=== PATIENT | male | born 1990 | race Caucasian/White ===

== ENCOUNTER 2017-03-02 04:49 | Emergency (ER) | payer SELFPAY ==
[~2017-03-02 04:49] MED LIST: HYDR7.5S PO; SUBO8MIS SL
[2017-03-02 04:50] VITALS: BP 139/84; PULSE 106; RESP 16; TEMP 97.8; O2SAT 98
[2017-03-02] MEDS ORDERED: CEPH500C PO (05:10)
[2017-03-02] MEDS ORDERED: BACT800T5 PO (05:10)
--- NOTE | 2017-03-02 05:14 | PD ---
HPI Chief Complaint: Skin Problem Time Seen by Provider: 05:10 Travel History International Travel<30 days: No Contact w/Intl Traveler<30days: No Traveled to known affect area: No History of Present Illness HPI 26-year-old white male presents emergency Department with complaints of infection is lower pubic region over the past week. He states that the area is opened and started draining. He has had a history of skin infections in the past. He states that he has had cellulitis as well. Pain is moderate. Worse with palpation. He denies any fever chills. No nausea vomiting. No alleviating factors. PFSH Past Medical History Narrative Medical Mandible fracture, sUBSTANCE ABUSE, MRSA Cancer: No Cardiovascular Problems: No Diabetes: No Endocrine: No Genitourinary: No Hepatitis: No Hiatal Hernia: No Immune Disorder: No Musculoskeletal: No Neurologic: No Psychiatric: No Reproductive: No Respiratory: No Thyroid Disease: No Tetanus Vaccination: < 5 Years Past Surgical History Narrative Surgical Mandible fracture with arch bars Abdominal Surgery: No AICD: No Cardiac Surgery: No Ear Surgery: No Endocrine Surgery: No Eye Surgery: No Genitourinary Surgery: No Gynecologic Surgery: No Joint Replacement: No Oral Surgery: Yes (ARCH BARS AND WIRES) Pacemaker: No Thoracic Surgery: No Other Surgery: Yes Social History Alcohol Use: No Tobacco Use: Yes (5 cigarettes a day) Substance Use: No Allergies-Medications (Allergen,Severity, Reaction): Coded Allergies: No Known Allergies (Unverified , 03/02/17) Reported Meds & Prescriptions Reported Meds & Active Scripts Active Hydrocodone/Acetaminophen 7.5 mg/325 mg/15 ml 7.5 mg/325 mg/15 ml Angie 15 Ml PO Q4H PRN Reported Suboxone 8 mg/2 mg 8 mg/2 mg Subl 1 Strip SL DAILY PRN SUBLINGUAL STRIP. Review of Systems Except as stated in HPI: all other systems reviewed are Neg Physical Exam Narrative GENERAL: This is a well-nourished, well-developed patient, in no apparent distress. SKIN: Patient has a 1.5 x 1.5 cm open draining superficial pubic abscess. No pointing. No fluctuance. Tender to touch. HEAD: Atraumatic. Normocephalic. EYES: PERRL, EOMI, no discharge or injection. No scleral icterus. EARS: Clear NOSE: Nasal turbinates appear normal. THROAT: Mucosa pink and moist. Airway patent. NECK: Trachea midline. supple, moves head freely. LUNGS: Clear to auscultation. CV: Regular in rhythm. ABDOMEN: Soft nontender. EXT: No clubbing cyanosis or edema. Data Data Last Documented VS Vital Signs Date Time Temp Pulse Resp B/P Pulse Ox O2 Delivery O2 Flow Rate FiO2 03/02/17 04:50 97.8 106 16 139/84 98 Room Air Orders Sulfamet-Trimeth Ds 800-160 Mg (Bactrim (03/02/17 05:15) Cephalexin (Keflex) (03/02/17 05:15) MDM Medical Decision Making Medical Screen Exam Complete: Yes Emergency Medical Condition: Yes Medical Record Reviewed: Yes Differential Diagnosis MDM: High Differential diagnoses: Abscess, folliculitis, cellulitis, lymphangitis, abrasion, contact dermatitis Narrative Course Patient has a open draining superficial abscess in the pubic region. Patient's given Bactrim DS and Keflex 500 by mouth. Diagnosis Primary Impression: Abscess Patient Instructions: General Instructions Additional Instructions: Rest. Elevation. keep clean and dry. Warm compresses Daily wound care with soap, water and Neosporin. Three Advil every 6 hours. Cephalexin and Bactrim DS Follow-up with a primary care doctor in one week. Return to the ER for any problems. Med/Other Pt SpecificInfo: Prescription(s) given, Wound Care Scripts Cephalexin 500 Mg [id number] Mg PO Q6H #28 CAP Prov:Yesy Soriano MD 03/02/17 Sulfamethoxazole-Trimethoprim (Bactrim DS)800-160 Mg Tab1 Tab PO BID #20 TAB Prov:Yesy Soriano MD 03/02/17 Disposition: 01 DISCHARGE HOME Condition: Stable Remi Wilson Mar 02, 2017 05:14
[2017-03-02] MEDS ORDERED: SULFAMETHOXAZOLE-TRIMETHOPRIM DS 800-160 MG TAB PO ONE (05:15)
[2017-03-02] MEDS ORDERED: CEPHALEXIN MONOHYDRATE 500 MG CAP PO ONE (05:15)
[2017-03-02 05:26] VITALS: BP 119/74
== END 2017-03-02 05:48 | disposition home or self-care (01) ==
LOC: NEPD 04:49
DX: L02.211 Cutaneous abscess of abdominal wall (principal); F17.210 Nicotine dependence, cigarettes, uncomplicated; Z79.899 Other long term (current) drug therapy
CPT/HCPCS: 99284

== ENCOUNTER 2017-08-28 01:33 | Emergency (ER) | payer SELFPAY ==
[~2017-08-28] VITALS: Ht 182.9 cm; Wt 102.8 kg
[~2017-08-28 01:33] MED LIST changes: +BACT800T5 PO; +CEPH500C PO
[2017-08-28 01:40] VITALS: BP 132/85; PULSE 114; RESP 12; TEMP 98.5; O2SAT 97
[2017-08-28] MEDS ORDERED: SULFAMETHOXAZOLE-TRIMETHOPRIM DS 800-160 MG TAB PO ONE (03:00)
[2017-08-28] MEDS ORDERED: CLIN150C14 PO (03:00)
[2017-08-28] MEDS ORDERED: CLINDAMYCIN 150 MG CAP PO ONE (03:00)
[2017-08-28] MEDS ORDERED: IBUPROFEN 800 MG TAB PO ONE (03:00)
[2017-08-28] MEDS ORDERED: BACT800T5 PO (03:00)
--- NOTE | 2017-08-28 03:01 | PD ---
HPI Chief Complaint: Skin Problem Time Seen by Provider: 02:57 Travel History International Travel<30 days: No Contact w/Intl Traveler<30days: No Traveled to known affect area: No History of Present Illness HPI 26-year-old male presents to the emergency department for complaint of several days of midsternal tenderness redness and increased warmth. Patient states she has had recurrent abscesses and cellulitis to this area. Patient denies fever chills nausea vomiting. Patient states that pain is moderate to severe. Patient states that he also notes another area of redness to his abdominal wall. Patient denies prior MRSA infection. PFS Past Medical History Narrative Medical nursing notes reviewed Cancer: No Cardiovascular Problems: No Diabetes: No Endocrine: No Genitourinary: No Hepatitis: No Hiatal Hernia: No Immune Disorder: No Musculoskeletal: No Neurologic: No Psychiatric: No Reproductive: No Respiratory: No Thyroid Disease: No Influenza Vaccination: No Past Surgical History Abdominal Surgery: No AICD: No Cardiac Surgery: No Ear Surgery: No Endocrine Surgery: No Eye Surgery: No Genitourinary Surgery: No Gynecologic Surgery: No Joint Replacement: No Oral Surgery: Yes (ARCH BARS AND WIRES) Pacemaker: No Thoracic Surgery: No Other Surgery: Yes Social History Alcohol Use: No Tobacco Use: Yes (5 cigarettes a day) Substance Use: No Allergies-Medications (Allergen,Severity, Reaction): Coded Allergies: No Known Allergies (Unverified Adverse Reaction, Unknown, 08/28/17) Reported Meds & Prescriptions Reported Meds & Active Scripts Active Clindamycin (Clindamycin HCl) 150 Mg Cap 300 Mg PO Q6H 7 Days Bactrim DS (Sulfamethoxazole-Trimethoprim) 800-160 Mg Tab 1 Tab PO BID Review of Systems Except as stated in HPI: all other systems reviewed are Neg Physical Exam Narrative GENERAL: Well-developed well-nourished male in no acute distress no respiratory distress SKIN: Warm and dry. HEAD: Normocephalic. EYES: No scleral icterus. No injection or drainage. NECK: Supple, trachea midline. No JVD or lymphadenopathy. CARDIOVASCULAR: Regular rate and rhythm without murmurs, gallops, or rubs. Chest: Small area 1 cm x 1 cm area of erythema induration and mild striations no fluctuance no increased warmth no pointing no pustule no vesicle. RESPIRATORY: Breath sounds equal bilaterally. No accessory muscle use. GASTROINTESTINAL: Abdomen soft, non-tender, nondistended. Abdominal wall pink ringed rash. MUSCULOSKELETAL: No cyanosis, or edema. BACK: Nontender without obvious deformity. No CVA tenderness. Data Data Last Documented VS Vital Signs Date Time Temp Pulse Resp B/P (MAP) Pulse Ox O2 Delivery O2 Flow Rate FiO2 08/28/17 03:35 90 20 124/76 (92) 98 08/28/17 01:40 98.5 Orders Orders Sulfamet-Trimeth Ds 800-160 Mg (Bactrim (08/28/17 03:00) Clindamycin (Cleocin) (08/28/17 03:00) Ibuprofen (Motrin) (08/28/17 03:00) Ed Discharge Order (08/28/17 02:58) [facility] Medical Decision Making Medical Screen Exam Complete: Yes Emergency Medical Condition: Yes Medical Record Reviewed: Yes Differential Diagnosis Cellulitis abscess folliculitis ringworm Narrative Course Patient has small area of induration without fluctuance for mild cellulitis early abscess of the chest wall need to be started on oral antibiotics and is encouraged to use topical antifungal for ringworm to the abdominal wall. Patient is encouraged to recheck in 24-48 hours as maybe able to I&D site. First dose of antibiotic administered in the emergency department. Patient is otherwise stable for outpatient management. 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 Return to the emergency department for any concerns or change in condition May use [id number] acetaminophen for pain or fever 100.4F or greater May use ibuprofen/Advil/Motrin 800 mg as often as every 8 hours as needed for pain associated inflammation or fever 100.4F or greater Med/Other Pt SpecificInfo: Prescription(s) given Scripts Clindamycin (Clindamycin) 150 Mg Cap 300 MG PO Q6H for Infection for 7 Days, #56 CAP 0 Refills Prov: Donya Brenner MD 08/28/17 Sulfamethoxazole-Trimethoprim (Bactrim DS) 800-160 Mg Tab 1 TAB PO BID for Infection, #20 TAB 0 Refills Prov: Donya Brenner MD 08/28/17 Disposition: 01 DISCHARGE HOME Condition: Stable Donya Brenner MD Aug 28, 2017 03:01
[2017-08-28 03:35] VITALS: BP 124/76
== END 2017-08-28 03:36 | disposition home or self-care (01) ==
LOC: PHED 01:33
DX: L02.213 Cutaneous abscess of chest wall (principal); L03.313 Cellulitis of chest wall; B35.9 Dermatophytosis, unspecified; Z72.0 Tobacco use
CPT/HCPCS: 99284

== ENCOUNTER 2018-07-03 23:40 | Inpatient (IN) ==
--- NOTE | 2018-07-04 01:28 | ED ---
HPI General Chief complaint: Skin/Abscess/Foreign Body Stated complaint: Poss spider bite per PT Time Seen by Provider: 07/04/18 00:52 History of Present Illness HPI narrative: Patient is a 27-year-old male who says for 4 days his legs been swelling the right knee he had a spider bite and now it is gone for days with no antibiotics no treatment in his entire lower leg tib-fib area is swollen erythematous and tender he has no pain with passive extension of his toes but it is very swollen compared to the right. Pain is pressure-like he says he feels tingling as well in his leg and sometimes he feels his toes are numb. He has not seen a doctor for this he is not on antibiotics he is not taking any [id number] meds either Related Data Home Medications Medication Instructions Recorded Confirmed No Known Home Medications 07/04/18 07/04/18 Allergies Allergy/AdvReac Type Severity Reaction Status Date / Time No Known Allergies Allergy Verified 07/04/18 00:02 [facility] Medical History Medical History Patient denies medical problems (Acute) Surgical History Surgical History History of mandibular surgery (Acute) Social History Social History Substance History: No History of Abuse Second Hand Smoke Exposure: Yes Smoking Status: Light tobacco smoker Tobacco Type: Cigars How Often Do You Have a Drink Containing Alcohol: Never Recent Travel in [facility] within the Last 8 Weeks: No Recent Out of Country Travel within the Last 8 Weeks: No Immunization History Tetanus Immunization: >5 Years Exam Narrative Exam Narrative: GENERAL: right leg swelling erythema red tender painful anterior lower knee entire tib fib swelling SKIN: Warm and dry. HEAD: Atraumatic. Normocephalic. EYES: Pupils equal and round. No scleral icterus. No injection or drainage. ENT: No nasal bleeding or discharge. Mucous membranes pink and moist. NECK: Trachea midline. No JVD. CARDIOVASCULAR: Regular rate and rhythm. RESPIRATORY: No accessory muscle use. Clear to auscultation. Breath sounds equal bilaterally. GASTROINTESTINAL: Abdomen soft, non-tender, nondistended. Hepatic and splenic margins not palpable. MUSCULOSKELETAL: Extremities Right lower leg swelling rednesess and tender and increased circumference of right > left leg. NEUROLOGICAL: Awake and alert. No obvious cranial nerve deficits. Motor grossly within normal limits. Five out of 5 muscle strength in the arms and legs. Normal speech. PSYCHIATRIC: Appropriate mood and affect; insight and judgment normal. Course Initial Documented Vital Signs Temperature 99.5 F 07/03/18 23:58 Pulse Rate 118 H 07/03/18 23:58 Respiratory Rate 18 07/03/18 23:58 Blood Pressure 155/112 H 07/03/18 23:58 Pulse Oximetry 99 07/03/18 23:58 Last Documented Vital Signs Temperature 99.5 F 07/03/18 23:58 Pulse Rate 97 H 07/04/18 00:58 Respiratory Rate 18 07/04/18 00:58 Blood Pressure 138/78 07/04/18 00:58 Pulse Oximetry 100 07/04/18 00:58 Discharge Plan Physicians Team ED Provider: Ender Garcia Rxs /Orders / Referrals /Forms Prescriptions: No Action No Known Home Medications RF: 0 Status ED Status: With Doctor
[2018-07-04] MEDS ORDERED: Vancomycin Inj 1 GM/200 ML PIGGYBACK IV.SIG ONE (01:32)
[2018-07-04] MEDS ORDERED: Vancomycin Inj 1,000 MG in Sodium Chlor 0.9% Inj 250 ML IV.SIG ONE (02:00)
[2018-07-04 02:06] LABS: Baso # (Auto) 0.1 th/mm3 (0.0-0.2); Baso % (Auto) 0.4 % (0.0-2.0); Eos # (Auto) 0.1 th/mm3 (0.0-0.4); Eos % (Auto) 0.4 % (0.0-4.0); Hematocrit 42.8 % (39.0-51.0); Hemoglobin 14.3 gm/dL (13.0-17.0); Lymph # (Auto) 2.1 th/mm3 (1.0-4.8); Lymph % (Auto) 14.9 % (9.0-44.0); Mean Corpuscular HGB Conc 33.5 % (32.0-36.0); Mean Corpuscular Hemoglobin 28.9 pg (27.0-34.0); Mean Corpuscular Volume 86.3 fL (80.0-100.0); Mean Platelet Volume 9.1 fL (7.0-11.0); Mono # (Auto) 1.1 th/mm3 (0.0-0.9); Mono % (Auto) 8.1 % (0.0-8.0); Neut # (Auto) 10.7 th/mm3 (1.8-7.7); Neut % (Auto) 76.2 % (16.0-70.0); Platelet Count 169 th/mm3 (150-450); Red Blood Count 4.97 mil/mm3 (4.50-5.90); Red Cell Distribution Width 13.4 % (11.6-17.2)
[2018-07-04] MEDS ORDERED: Ketorolac Inj 30 MG/ML (IVP) Vial IV.PUSH ONE (02:09)
[2018-07-04 02:26] LABS: Alanine Aminotransferase 140 U/L (12-78); Albumin 3.1 g/dL (3.4-5.0); Anion Gap 4 meq/L (5-15); Aspartate Aminotransferase 51 U/L (15-37); Blood Urea Nitrogen 15 mg/dL (7-18); Calcium 7.9 mg/dL (8.5-10.1); Carbon Dioxide 30.9 meq/L (21.0-32.0); Chloride 103 meq/L (98-107); Glomerular Filtration Rate Greater Than 89 mL/min (>89); Glucose,Random 117 mg/dL (74-106); Potassium 3.7 meq/L (3.5-5.1); Sodium 138 meq/L (136-145)
[2018-07-04 02:28] LABS: Alkaline Phosphatase 72 U/L (45-117); Total Protein 6.8 g/dL (6.4-8.2)
--- NOTE | 2018-07-04 03:23 | US ---
EXAM DATE: 07/04/2018 3:00 AM EST AGE/SEX: 27 years / Male INDICATIONS: Right leg swelling. CLINICAL DATA: This is the patient's initial encounter. Patient reports that signs and symptoms have been present for 3 days and indicates a pain score of 5/10. MEDICAL/SURGICAL HISTORY: None. . Mandibular surgery. COMPARISON: No prior exams available for comparison. TECHNIQUE: Venous ultrasound of both lower extremities was performed from the inguinal ligament to t he proximal calf. Real-time, color Doppler and spectral tracing, compression and augmentation techni ques were used. FINDINGS: Echogenic noncompressible thrombus seen involving the peroneal vein. This is occlusive in nature. The remaining venous structures show normal venous waveforms and augmentation. CONCLUSION: 1. Small volume DVT. Electronically signed by: Homer Hidalgo MD 07/04/2018 3:21 AM EST
[2018-07-04] MEDS ORDERED: Acetaminophen 325 MG Tablet PO PRN (03:33)
[2018-07-04] MEDS ORDERED: Bisacodyl 10 MG Supp RECTAL PRN (03:33)
[2018-07-04] MEDS ORDERED: Naloxone Inj 0.4 MG/ML Vial IV.PUSH PRN (03:33)
[2018-07-04] MEDS ORDERED: Enoxaparin Inj 100 MG/ML Syringe SQ ONE (03:34)
[2018-07-04] MEDS ORDERED: Vancomycin Consult Pharmacy OTHER PRN (03:37)
[2018-07-04] MEDS ORDERED: Enoxaparin Inj 40 MG/0.4 ML Syringe SQ SCH (04:00)
[2018-07-04] MEDS: Sod Chloride 0.9% Inj 1,000 ML IV.CONT SCH ×2 (04:19→14:12)
[2018-07-04] MEDS ORDERED: Vancomycin Inj 1,000 MG in Sodium Chlor 0.9% Inj 250 ML IV.SIG SCH (04:30)
[2018-07-04] MEDS: Enoxaparin Inj 100 MG/ML Syringe SQ SCH ×2 (07:03→16:04)
[2018-07-04] MEDS: Senna/Docusate Sodium 8.6/50 MG Tablet PO SCH ×2 (10:23→20:34)
--- NOTE | 2018-07-04 10:40 | P.HP ---
History of Present Illness Primary Care Physician: No Primary Care Physician Chief Complaint: Right knee pain following spider bite History of Present Illness: 27-year-old man with no significant past medical history other than half a pack tobacco use presented to the ED for evaluation of painful and swollen right knee following a spider bite 4 days ago. Patient states, 4 days ago he was working on a car when he got bitten by a spider accident he noted 3 small puncture wound. 24 hours after noted significant swelling and redness followed by difficulty with ambulation. About 2 days ago patient started noticing tingling in his right lower extremity. He endorsed chills and subjective fevers. He states, the wound became slightly purulent which patient played with. While in the ED, a Doppler was positive for right lower extremity thrombus. He had no other issues. Review of Systems All other systems reviewed negative except as stated in HPI PMFSH - History History Provided By: Patient - Medical History Medical History: Medical History (Last Reviewed 07/04/18 @ 00:59 by Zion Cortez Jr, RN) Patient denies medical problems - Surgical History Surgical History: Surgical History (Last Updated 07/04/18 @ 00:59 by Zion Cortez Jr, RN) History of mandibular surgery - Family History Family History: Family History (Last Updated 07/04/18 @ 10:37 by Chuck Maldonado MD) Other Congestive heart failure (CHF) - Tobacco History Second Hand Smoke Exposure: Yes Tobacco Use In Past 30 Days: Yes Smoking Status: Light tobacco smoker Tobacco Type: Cigars - Alcohol History How Often Do You Have a Drink Containing Alcohol: Never - Substance Use History Substance History: No History of Abuse - Travel History Recent Travel in the [facility] Within the Last 8 Weeks: No Recent Travel Out of the Country Within the Last 8 Weeks: No - Immunization History Tetanus Immunization: >5 Years Medications and Allergies Active Medications: Active Medications Acetaminophen (Tylenol) 650 mg PO Q4H PRN PRN Reason: Temp > 100.4 Hydrocodone Bitart/Acetaminophen ([place] 5/325) 1 tab PO Q4H PRN PRN Reason: pain scale 5 to 10 Al Hydroxide/Mg Hydroxide (Milk Of Magnesia Liq) 30 ml PO Q12H PRN PRN Reason: Mild Constipation Bisacodyl (Dulcolax Supp) 10 mg RECTAL DAILY PRN PRN Reason: SEVERE CONSITIPATION Enoxaparin Sodium (Lovenox Inj) 100 mg SQ Q12H [facility] Stop: 07/04/18 23:00 Last Admin: 07/04/18 07:03 Dose: Not Given Sodium Chloride (Ns Inj) 1,000 mls @ 100 mls/hr IV.CONT .Q10H [facility] Last Admin: 07/04/18 04:19 Dose: 100 mls/hr Vancomycin HCl 1,750 mg/ (Sodium Chloride) 517.5 mls @ 250 mls/hr IV.SIG Q12H [facility] Piperacillin/Tazobactam/Dextrose (Zosyn 3.375 Gm Premix) 50 mls @ 100 mls/hr IV.SIG Q6H [facility] Lactobacillus Acidophilus (Lactinex) 1 tab PO BID [facility] Lactulose (Lactulose Liq) 30 ml PO DAILY PRN PRN Reason: SEVERE CONSITIPATION Miscellaneous Information ([facility] Ordered Lab Info) 0 each OTHER ONCE ONE Stop: 07/05/18 13:46 Morphine Sulfate (Morphine Inj) 2 mg IV.PUSH Q4H PRN PRN Reason: BREAKTHROUGH PAIN Naloxone HCl (Narcan Inj) 0.4 mg IV.PUSH UNSCH PRN PRN Reason: SEE LABEL COMMENTS Ondansetron HCl (Zofran Inj) 4 mg IV.PUSH Q6H PRN PRN Reason: NAUSEA OR VOMITING Pharmacy Profile Note (Vancomycin Consult Pharmacy) 1 each OTHER UNSCH PRN PRN Reason: Pharmacy to dose Rivaroxaban (Xarelto) 20 mg PO DAILY [facility] Senna/Docusate Sodium (Jenny-Colace) 1 tab PO BID [facility] Last Admin: 07/04/18 10:23 Dose: Not Given Sennosides (Senokot) 17.2 mg PO Q12H PRN PRN Reason: Moderate Constipation Sodium Chloride (Ns Flush) 2 ml IV.FLUSH BID [facility] Last Admin: 07/04/18 10:23 Dose: Not Given Sodium Chloride (Ns Flush) 2 ml IV.FLUSH PRN PRN PRN Reason: FLUSH AFTER USING IV ACCESS Allergies Allergy/AdvReac Type Severity Reaction Status Date / Time No Known Allergies Allergy Verified 07/04/18 00:02 Home Medications Medication Instructions Recorded Confirmed Type No Known Home Medications 07/04/18 07/04/18 History Exam Vital signs: Vital Signs 07/03/18 23:58 07/04/18 00:58 07/04/18 03:00 Temperature 99.5 F Pulse Rate 118 H 97 H Respiratory Rate 18 18 16 Blood Pressure 155/112 H 138/78 Pulse Oximetry 99 100 07/04/18 06:02 07/04/18 08:07 Temperature Pulse Rate 82 82 Respiratory Rate 18 16 Blood Pressure 116/63 130/73 Pulse Oximetry 98 96 Intake & Output 07/03/18 07/04/18 07/04/18 18:59 06:59 18:59 Intake Total 500 / 500 Balance 500 / 500 Weight 99.79 kg Intake: IV 500 / 500 Vancomycin Inj 1,000 MG In NS 500 / 500 Inj 250 ML @ 250 mls/hr IV.SIG DAILY@0430 [facility] Rx#:[id number] Narrative: GENERAL: NAD SKIN: right leg swelling erythema red tender painful anterior lower knee entire tib fib swelling HEAD: Atraumatic. Normocephalic. EYES: Pupils equal and round. No scleral icterus. No injection or drainage. ENT: No nasal bleeding or discharge. Mucous membranes pink and moist. NECK: Trachea midline. No JVD. CARDIOVASCULAR: Regular rate and rhythm. RESPIRATORY: No accessory muscle use. Clear to auscultation. Breath sounds equal bilaterally. GASTROINTESTINAL: Abdomen soft, non-tender, nondistended. Hepatic and splenic margins not palpable. MUSCULOSKELETAL: Right lower leg swelling redness and tender and increased circumference of right > left leg. NEUROLOGICAL: Awake and alert. No obvious cranial nerve deficits. Motor grossly within normal limits. Five out of 5 muscle strength in the arms and legs. Normal speech. PSYCHIATRIC: Appropriate mood and affect; insight and judgment normal. Results - Labs CBC & Chem 7: 07/05/18 08:13 07/05/18 08:13 Labs: Laboratory Results - last 24 hr 07/04/18 07/04/18 07/04/18 01:48 01:48 01:54 WBC 14.0 H RBC 4.97 Hgb 14.3 Hct 42.8 MCV 86.3 MCH 28.9 MCHC 33.5 RDW 13.4 Plt Count 169 MPV 9.1 Neut % (Auto) 76.2 H Lymph % (Auto) 14.9 [place] % (Auto) 8.1 H Eos % (Auto) 0.4 Baso % (Auto) 0.4 Neut # (Auto) 10.7 H Lymph # (Auto) 2.1 [place] # (Auto) 1.1 H Eos # (Auto) 0.1 Baso # (Auto) 0.1 WBC Differential . Differential Comment Auto diff final Sodium 138 Potassium 3.7 Chloride 103 Carbon Dioxide 30.9 Anion Gap 4 L BUN 15 Creatinine 0.97 Estimated GFR Greater than 89 Random Glucose 117 H Lactic Acid 1.6 Calcium 7.9 L Total Bilirubin 0.6 AST 51 H ALT 140 H Alkaline Phosphatase 72 Total Protein 6.8 Albumin 3.1 L - Imaging Impressions Venous Doppler Study 07/04/18 01:30 CONCLUSION: 1. Small volume DVT. Caprini VTE Risk Assessment Caprini VTE Risk Assessment: No/Low Risk (score <= 1) Caprini Risk Assessment Model: Point Value = 1 Point Value = 2 Point Value = 3 Point Value = 5 Age 41-60 Minor surgery BMI > 25 kg/m2 Swollen legs Varicose veins or History of unexplained or recurrent spontaneous Oral contraceptives or hormone replacement Sepsis (< 1 month) Serious lung disease, including pneumonia (< 1 month) Abnormal pulmonary function Acute myocardial infarction Congestive heart failure (< 1 month) History of inflammatory bowel disease Medical patient at bed rest Age 61-74 Arthroscopic surgery Major open surgery (> 45 min) Laparoscopic surgery (> 45 min) Malignancy Confined to bed (> 72 hours) Immobilizing plaster cast Central venous access Age >= 75 History of VTE Family history of VTE Factor V Leiden Prothrombin [id number] Lupus anticoagulant Anticardiolipin antibodies Elevated serum homocysteine Heparin-induced thrombocytopenia Other congenital or acquired thrombophilia Stroke (< 1 month) Elective arthroplasty Hip, pelvis, or leg fracture Acute spinal cord injury (< 1 month) Prophylaxis Regimen: Total Risk Factor Score Risk Level Prophylaxis Regimen 0-1 Low Early ambulation 2 Moderate Order ONE of the following: *Sequential Compression Device (SCD) *Heparin 5000 units SQ BID 3-4 Higher Order ONE of the following medications: *Heparin 5000 units SQ TID *Enoxaparin/Lovenox 40 mg SQ daily (WT < 150 kg, CrCl > 30 mL/min) *Enoxaparin/Lovenox 30 mg SQ daily (WT < 150 kg, CrCl > 10-29 mL/min) *Enoxaparin/Lovenox 30 mg SQ BID (WT < 150 kg, CrCl > 30 mL/min) AND/OR *Sequential Compression Device (SCD) 5 or more Highest Order ONE of the following medications: *Heparin 5000 units SQ TID (Preferred with Epidurals) *Enoxaparin/Lovenox 40 mg SQ daily (WT < 150 kg, CrCl > 30 mL/min) *Enoxaparin/Lovenox 30 mg SQ daily (WT < 150 kg, CrCl > 10-29 mL/min) *Enoxaparin/Lovenox 30 mg SQ BID (WT < 150 kg, CrCl > 30 mL/min) AND *Sequential Compression Device (SCD) Assessment and Plan - Plan 27-year-old man with Right lower extremity cellulitis Spider bite Currently on IV vancomycin, will add Zosyn and monitor cultures Pain management accordingly Leukocytosis From a bowel infectious process, monitor Right lower extremity DVT Doppler positive for right thrombus Currently on Lovenox subcu every 12 hours, will start Xarelto 20 mg daily on July 05, 2018 instead Tobacco abuse Counseling cessation provided Start nicotine patch Transaminitis Check hepatitis profile and treat accordingly DVT prophylaxis: Lovenox
[2018-07-04] MEDS: Piperacil/Tazo 3.375 GM Premix 50 ML IV.SIG SCH ×2 (14:02→18:31)
[2018-07-04] MEDS: Lactobacillus Acidophilus/L. Spores Tablet PO SCH ×2 (14:03→22:25)
[2018-07-04] MEDS: Vancomycin Inj 1,750 MG in Sodium Chlor 0.9% Inj 500 ML IV.SIG SCH (15:30)
[2018-07-04] MEDS: Morphine Inj 4 MG/ML Vial IV.PUSH PRN (16:03)
[2018-07-04 20:37] LABS: Hepatitis A IgM Antibody Nonreactive (Nonreactive)
[2018-07-04 20:38] LABS: Hepatitits B Surface Antigen Nonreactive (Nonreactive)
[2018-07-05] MEDS: Sod Chloride 0.9% Inj 1,000 ML IV.CONT SCH ×4 (00:16→21:27)
[2018-07-05] MEDS: Piperacil/Tazo 3.375 GM Premix 50 ML IV.SIG SCH ×4 (00:16→18:55)
[2018-07-05] MEDS: Morphine Inj 4 MG/ML Vial IV.PUSH PRN ×2 (00:17→04:06)
[2018-07-05] MEDS: Vancomycin Inj 1,750 MG in Sodium Chlor 0.9% Inj 500 ML IV.SIG SCH ×2 (03:22→16:21)
[2018-07-05] MEDS: Lactobacillus Acidophilus/L. Spores Tablet PO SCH ×2 (08:39→21:27)
[2018-07-05] MEDS: Senna/Docusate Sodium 8.6/50 MG Tablet PO SCH ×2 (08:40→21:27)
[2018-07-05 08:59] LABS: Baso % (Auto) 0.3 % (0.0-2.0); Eos # (Auto) 0.2 th/mm3 (0.0-0.4); Eos % (Auto) 1.6 % (0.0-4.0); Hematocrit 38.7 % (39.0-51.0); Hemoglobin 12.8 gm/dL (13.0-17.0); Lymph # (Auto) 1.8 th/mm3 (1.0-4.8); Lymph % (Auto) 15.2 % (9.0-44.0); Mean Corpuscular HGB Conc 33.2 % (32.0-36.0); Mean Corpuscular Hemoglobin 28.4 pg (27.0-34.0); Mean Corpuscular Volume 85.5 fL (80.0-100.0); Mean Platelet Volume 9.4 fL (7.0-11.0); Mono # (Auto) 1.1 th/mm3 (0.0-0.9); Mono % (Auto) 9.8 % (0.0-8.0); Neut # (Auto) 8.4 th/mm3 (1.8-7.7); Neut % (Auto) 73.1 % (16.0-70.0); Platelet Count 183 th/mm3 (150-450); Red Blood Count 4.53 mil/mm3 (4.50-5.90); Red Cell Distribution Width 13.5 % (11.6-17.2); White Blood Count 11.5 th/mm3 (4.0-11.0)
[2018-07-05] MEDS ORDERED: Rivaroxaban 20 MG Tablet PO SCH (09:00)
[2018-07-05 09:22] LABS: Calcium 8.1 mg/dL (8.5-10.1); Carbon Dioxide 27.3 meq/L (21.0-32.0); Potassium 3.2 meq/L (3.5-5.1)
--- NOTE | 2018-07-05 10:36 | P.PN ---
Subjective Interval history: Nursing reports that the patient looks ill. Erythema is spanning more proximally beyond the scope of the knee onto the thigh. Patient himself says he feels no better than yesterday. Thinks that the swelling in his legs just are notch better. He is suprised when I tell him that his blood work is showing hepatitis C. He denies IV drug use. When I point out what could be track mai on his feet, he says those are just abrasions from scratching from other spider bites. Patient denies being on any recent travel, denies any history of cancer in himself or his family. Does report lying around in bed for the past 2 days. Physical Exam Vital signs: Vital Signs 07/04/18 11:39 07/04/18 11:59 07/04/18 16:57 Temperature 98.5 F 98.5 F Pulse Rate 99 H 104 H Respiratory Rate 16 20 20 Blood Pressure 132/79 125/72 Pulse Oximetry 100 100 07/04/18 19:34 07/05/18 00:00 07/05/18 04:00 Temperature 100.0 F H 99.0 F 98.9 F Pulse Rate 110 H 106 H 111 H Respiratory Rate 20 18 19 Blood Pressure 113/70 115/59 L 139/78 Pulse Oximetry 96 96 100 07/05/18 07:17 07/05/18 10:13 Temperature 98.4 F Pulse Rate 95 H Respiratory Rate 18 16 Blood Pressure 142/82 H Pulse Oximetry 99 Intake & Output 07/04/18 07/05/18 07/05/18 18:59 06:59 18:59 Intake Total 1567.5 / 1567.5 1667.5 / 1667.5 Balance 1567.5 / 1567.5 1667.5 / 1667.5 Weight 90.718 kg Intake: IV 1567.5 / 1567.5 1667.5 / 1667.5 NS Inj 1,000 ML @ 100 mls/hr IV 1000 / 1000 1000 / 1000 .CONT .Q10H [facility] Rx#:[id number] Zosyn 3.375 GM Premix 50 ML @ 50 / 50 150 / 150 100 mls/hr IV.SIG Q6H [facility] Rx#: [id number] Vancomycin Inj 1,750 MG In NS 517.5 / 517.5 517.5 / 517.5 Inj 500 ML @ 250 mls/hr IV.SIG Q12H [facility] Rx#:[id number] Other: # Voids 2 Date of Last Bowel Movement 07/03/18 Weight On Admission 90.79 kg Narrative: Limited active flexion of right knee due to edema and pain Right lower extremity: Has some prepatellar prominent edema minimal fluctuance, erythema spans over entire knee and prepatellar region, goes towards the posterior as well as the proximal circumferential bauer and popliteal region with edema as well. Edema stops about mid shaft down at the level of the tibia , foot is normal in size Left lower extremity has some track mai looking lesions over his left dorsum of the foot Heart sounds regular rate and rhythm, no murmurs Clear lungs bilaterally, unlabored breathing Awake and alert, in distress secondary to pain Results - Labs CBC & Chem 7: 07/05/18 08:13 07/05/18 08:13 Laboratory Results - last 24 hr 07/04/18 07/05/18 07/05/18 17:09 08:13 08:13 WBC 11.5 H RBC 4.53 Hgb 12.8 L Hct 38.7 L MCV 85.5 MCH 28.4 MCHC 33.2 RDW 13.5 Plt Count 183 MPV 9.4 Neut % (Auto) 73.1 H Lymph % (Auto) 15.2 [place] % (Auto) 9.8 H Eos % (Auto) 1.6 Baso % (Auto) 0.3 Neut # (Auto) 8.4 H Lymph # (Auto) 1.8 [place] # (Auto) 1.1 H Eos # (Auto) 0.2 Baso # (Auto) 0.0 WBC Differential . Differential Comment Auto diff final Sodium 138 Potassium 3.2 L Chloride 105 Carbon Dioxide 27.3 Anion Gap 6 BUN 6 L Creatinine 1.08 Estimated GFR 81 L Random Glucose 92 Calcium 8.1 L Hepatitis A IgM Ab Nonreactive Hep Bs Antigen Nonreactive Hep B Core IgM Ab Nonreactive Hep C IgG Ab Reactive H Assessment and Plan - Plan 27-year-old man admitted sepsis and right lower extremity DVT Sepsis secondary to cellulitis Right lower extremity cellulitis Spider bite? vs inoculation from possible dirty needle Currently on IV vancomycin and Zosyn, blood cultures pending Pain management accordingly Rule out abscess with ultrasound, may need CT scan of right lower extremity Lactic acidosis minimally elevated 1.6, IV fluids telemetry Leukocytosis improving, continue treatment as above Right lower extremity DVT Doppler positive for right thrombus, will switch patient back from Xarelto to Lovenox in light of possible surgical evaluation based upon pending above imaging studies Tobacco abuse Counseling cessation provided nicotine patch Transaminitis Hep C + lovenox
--- NOTE | 2018-07-05 11:17 | US ---
EXAM DATE: 07/05/2018 11:07 AM EST AGE/SEX: 27 years / Male INDICATIONS: Spider bite right anterior patella. CLINICAL DATA: This is the patient's subsequent encounter. Patient reports that signs and symptoms h ave been present for 4 - 6 days and indicates a pain score of 8/10. MEDICAL/SURGICAL HISTORY: . Spider bite right anterior patella. None. COMPARISON: [facility] [place] VENOUS DOPPLER LEG RIGHT, 07/04/2018. . FINDINGS: There is a complex subcutaneous hypoechoic area likely related to fluid seen in the anterior knee reg ion measuring 6.6 x 6.4 x 1.0 cm. This appears to potentially communicate with the anterior skin surf eugenie. CONCLUSION: Suspected inflammatory change and possible early abscess formation in the subcutaneous tissues over t he anterior knee region measuring up to 6.6 cm in greatest dimension. Electronically signed by: Yehuda Stevens MD 07/05/2018 11:16 AM EST
[2018-07-05 11:49] LABS: Amphetamine Screen,Urine Pos (Neg); Barbiturate Screen,Urine Neg (Neg); Cannabinoid Screen,Urine Pos (Neg); Cocaine Screen,Urine Neg (Neg)
[2018-07-05 11:51] LABS: Opiate Screen,Urine Pos (Neg)
[2018-07-05] MEDS ORDERED: Pharmacy Ordered Lab Info OTHER ONE (13:45)
--- NOTE | 2018-07-05 14:26 | P.CONOP ---
[facility] Orthopedics Consult Note - [facility] Consult date: 07/05/18 Chief complaint: Sepsis Narrative: 27-year-old man with no significant past medical history other than half a pack tobacco use presented to the ED for evaluation of painful and swollen right knee following a spider bite 4 days ago. Patient states, 4 days ago he was working on a car when he got bitten by a spider accident he noted 3 small puncture wounds. 24 hours after noted significant swelling and redness followed by difficulty with ambulation. He endorsed chills and subjective fevers. He states, the wound became slightly purulent. While in the ED, a Doppler was positive for right lower extremity thrombus. Patient denies IV drug use but has tested hepatitis C positive while admitted. Currently, patient states his right lower extremity swelling and pain has improved since admission although continues to have significant pain with any attempt at ambulation. Review of Systems Denies fevers, chills, nausea, vomiting. Denies chest pain, cough, shortness of breath. Denies abdominal pain or change in urination. Denies back pain, weakness, numbness or tingling. Denies dizziness, blurry vision or throat pain. Reports right knee and leg pain and swelling. Reports previous fevers and chills prior to admission but no recent fevers or chills over the last 24 hours. [facility] - History History Provided By: Patient - Medical History Medical History: Medical History (Last Reviewed 07/04/18 @ 00:59 by Zion Cortez Jr, RN) Patient denies medical problems - Surgical History Surgical History: Surgical History (Last Updated 07/04/18 @ 00:59 by Zion Cortez Jr, RN) History of mandibular surgery - Family History Family History: Family History (Last Updated 07/04/18 @ 10:37 by Chuck Maldonado MD) Other Congestive heart failure (CHF) - Tobacco History Second Hand Smoke Exposure: Yes Tobacco Use In Past 30 Days: Yes Smoking Status: Current every day smoker Tobacco Type: Cigars - Alcohol History How Often Do You Have a Drink Containing Alcohol: Never - Substance Use History Substance History: No History of Abuse - Travel History Recent Travel in the [facility] Within the Last 8 Weeks: No Recent Travel Out of the Country Within the Last 8 Weeks: No - Immunization History Tetanus Immunization: >5 Years Medications and Allergies Active Medications: Active Medications Acetaminophen (Tylenol) 650 mg PO Q4H PRN PRN Reason: Temp > 100.4 Hydrocodone Bitart/Acetaminophen ([place] 5/325) 1 tab PO Q4H PRN PRN Reason: pain scale 5 to 10 Last Admin: 07/05/18 08:40 Dose: 1 tab Al Hydroxide/Mg Hydroxide (Milk Of Magnesia Liq) 30 ml PO Q12H PRN PRN Reason: Mild Constipation Bisacodyl (Dulcolax Supp) 10 mg RECTAL DAILY PRN PRN Reason: SEVERE CONSITIPATION Enoxaparin Sodium (Lovenox Inj) 90 mg SQ Q12HR [facility] Sodium Chloride (Ns Inj) 1,000 mls @ 100 mls/hr IV.CONT .Q10H [facility] Last Infusion: 07/05/18 13:20 Dose: 100 mls/hr Vancomycin HCl 1,750 mg/ (Sodium Chloride) 517.5 mls @ 250 mls/hr IV.SIG Q12H [facility] Last Infusion: 07/05/18 05:43 Dose: Infused Piperacillin/Tazobactam/Dextrose (Zosyn 3.375 Gm Premix) 50 mls @ 100 mls/hr IV.SIG Q6H [facility] Last Infusion: 07/05/18 13:25 Dose: Infused Lactobacillus Acidophilus (Lactinex) 1 tab PO BID [facility] Last Admin: 07/05/18 08:39 Dose: 1 tab Lactulose (Lactulose Liq) 30 ml PO DAILY PRN PRN Reason: SEVERE CONSITIPATION Naloxone HCl (Narcan Inj) 0.4 mg IV.PUSH UNSCH PRN PRN Reason: SEE LABEL COMMENTS Ondansetron HCl (Zofran Inj) 4 mg IV.PUSH Q6H PRN PRN Reason: NAUSEA OR VOMITING Pharmacy Profile Note (Vancomycin Consult Pharmacy) 1 each OTHER UNSCH PRN PRN Reason: Pharmacy to dose Senna/Docusate Sodium (Jenny-Colace) 1 tab PO BID [facility] Last Admin: 07/05/18 08:40 Dose: 1 tab Sennosides (Senokot) 17.2 mg PO Q12H PRN PRN Reason: Moderate Constipation Sodium Chloride (Ns Flush) 2 ml IV.FLUSH BID [facility] Last Admin: 07/05/18 08:29 Dose: Not Given Sodium Chloride (Ns Flush) 2 ml IV.FLUSH PRN PRN PRN Reason: FLUSH AFTER USING IV ACCESS Allergies Allergy/AdvReac Type Severity Reaction Status Date / Time No Known Allergies Allergy Verified 07/04/18 00:02 Home Medications Medication Instructions Recorded Confirmed Type No Known Home Medications 07/04/18 07/04/18 History Exam Vital signs: Vital Signs 07/04/18 16:57 07/04/18 19:34 07/05/18 00:00 Temperature 98.5 F 100.0 F H 99.0 F Pulse Rate 104 H 110 H 106 H Respiratory Rate 20 20 18 Blood Pressure 125/72 113/70 115/59 L Pulse Oximetry 100 96 96 07/05/18 04:00 07/05/18 07:17 07/05/18 10:13 Temperature 98.9 F 98.4 F Pulse Rate 111 H 95 H Respiratory Rate 19 18 16 Blood Pressure 139/78 142/82 H Pulse Oximetry 100 99 07/05/18 11:52 Temperature 99.0 F Pulse Rate 95 H Respiratory Rate 18 Blood Pressure 130/84 Pulse Oximetry 99 Intake & Output 07/04/18 07/05/18 07/05/18 18:59 06:59 18:59 Intake Total 1567.5 / 1567.5 1667.5 / 1667.5 750 / 750 Balance 1567.5 / 1567.5 1667.5 / 1667.5 750 / 750 Weight 90.718 kg Intake: IV 1567.5 / 1567.5 1667.5 / 1667.5 750 / 750 NS Inj 1,000 ML @ 100 mls/hr IV 1000 / 1000 1000 / 1000 700 / 700 .CONT .Q10H [facility] Rx#:[id number] Zosyn 3.375 GM Premix 50 ML @ 50 / 50 150 / 150 50 / 50 100 mls/hr IV.SIG Q6H [facility] Rx#: [id number] Vancomycin Inj 1,750 MG In NS 517.5 / 517.5 517.5 / 517.5 Inj 500 ML @ 250 mls/hr IV.SIG Q12H [facility] Rx#:[id number] Other: # Voids 2 Date of Last Bowel Movement 07/03/18 Weight On Admission 90.79 kg Narrative: Drowsy but arousable, no acute distress Normocephalic Pupils equal No JVD Moist mucous membranes Nonlabored respirations Soft nontender abdomen Regular rate Right upper extremity: No tenderness to palpation or visible deformities. Full active range of motion and strength throughout. Sensation intact. Brisk cap refill. Left upper extremity:No tenderness to palpation or visible deformities. Full active range of motion and strength throughout. Sensation intact. Brisk cap refill. Right lower extremity: Significant edema about the knee and lower leg. Significant erythema of her anterior knee centered over the prepatellar bursa. Appears to be palpable fluctuance around the prepatellar bursa. Patient demonstrates range of motion from 0-90 with minimal discomfort. Patient appears neurovascularly intact distally. Brisk cap refill. Left lower extremity:No tenderness to palpation or visible deformities. Full active range of motion and strength throughout. Sensation intact. Brisk cap refill. No rash Normal affect Results - Labs Result Diagrams: 07/05/18 08:13 07/05/18 08:13 Labs: Laboratory Results - last 24 hr 07/04/18 07/05/18 07/05/18 17:09 08:13 08:13 WBC 11.5 H RBC 4.53 Hgb 12.8 L Hct 38.7 L MCV 85.5 MCH 28.4 MCHC 33.2 RDW 13.5 Plt Count 183 MPV 9.4 Neut % (Auto) 73.1 H Lymph % (Auto) 15.2 [place] % (Auto) 9.8 H Eos % (Auto) 1.6 Baso % (Auto) 0.3 Neut # (Auto) 8.4 H Lymph # (Auto) 1.8 [place] # (Auto) 1.1 H Eos # (Auto) 0.2 Baso # (Auto) 0.0 WBC Differential . Differential Comment Auto diff final Sodium 138 Potassium 3.2 L Chloride 105 Carbon Dioxide 27.3 Anion Gap 6 BUN 6 L Creatinine 1.08 Estimated GFR 81 L Random Glucose 92 Calcium 8.1 L Urine Opiates Screen Ur Barbiturates Screen Ur Amphetamines Screen U Benzodiazepines Scrn Urine Cocaine Screen U Cannabinoids Screen Hepatitis A IgM Ab Nonreactive Hep Bs Antigen Nonreactive Hep B Core IgM Ab Nonreactive Hep C IgG Ab Reactive H 07/05/18 11:22 WBC RBC Hgb Hct MCV MCH MCHC RDW Plt Count MPV Neut % (Auto) Lymph % (Auto) [place] % (Auto) Eos % (Auto) Baso % (Auto) Neut # (Auto) Lymph # (Auto) [place] # (Auto) Eos # (Auto) Baso # (Auto) WBC Differential Differential Comment Sodium Potassium Chloride Carbon Dioxide Anion Gap BUN Creatinine Estimated GFR Random Glucose Calcium Urine Opiates Screen Pos H Ur Barbiturates Screen Neg Ur Amphetamines Screen Pos H U Benzodiazepines Scrn Pos H Urine Cocaine Screen Neg U Cannabinoids Screen Pos H Hepatitis A IgM Ab Hep Bs Antigen Hep B Core IgM Ab Hep C IgG Ab - Diagnostic results Imaging: Impressions Lower Extremity Ultrasound 07/05/18 00:00 CONCLUSION: Suspected inflammatory change and possible early abscess formation in the subcutaneous tissues over the anterior knee region measuring up to 6.6 cm in greatest dimension. Assessment and Plan - Assessment and Plan 27yo M with significant right knee erythema and edema with suspicion for prepatellar septic bursitis, in addition, positive DVT At this time, patient has no advanced imaging of his knee or lower leg. Given my concern for prepatellar septic bursitis, I would recommend at least a CT scan with contrast to evaluate for abscess. Should there be an abscess, patient likely would benefit from irrigation and debridement of his right knee. Patient is currently on antibiotics given the concern for sepsis on admission. He states his swelling has improved although clinically he appears to have fluctuance over the anterior aspect of the knee. I do not appreciate any clear evidence of septic knee however. Patient will be made n.p.o. at midnight for possible surgery tomorrow afternoon pending the results of the CT scan.
[2018-07-05 15:02] LABS: Alanine Aminotransferase 85 U/L (12-78); Albumin 1.8 g/dL (3.4-5.0); Alkaline Phosphatase 80 U/L (45-117); Aspartate Aminotransferase 48 U/L (15-37); Total Protein 6.2 g/dL (6.4-8.2)
--- NOTE | 2018-07-05 16:00 | CT ---
EXAM DATE: 07/05/2018 3:42 PM EST AGE/SEX: 27 years / Male INDICATIONS: Anterior red swelling at the level of the patella CLINICAL DATA: This is the patient's initial encounter. Patient reports that signs and symptoms have been present for 1 day and indicates a pain score of 4/10. MEDICAL/SURGICAL HISTORY: None. None. RADIATION DOSE: 17.09 CTDI (mGy) COMPARISON: [facility] – [place], LEG SOFT TISSUE RIGHT, 07/05/2018. . TECHNIQUE: Multiple contiguous axial images were acquired using a multirow detector CT scanner after the intravenous administration of 96 ml Omnipaque 350 (iohexol) nonionic water-soluble contrast as a single exam dose. Multiplanar reconstruction was performed in the sagittal and coronal planes. Usi ng automated exposure control and adjustment of the mA and/or kV according to patient size, radiation dose was kept as low as reasonably achievable to obtain optimal diagnostic quality images. DICOM fo rmat image data is available electronically for review and comparison. FINDINGS: Bones: The bony structures about the knee are in normal alignment. The distal femur and proximal ti benedict and fibula are intact. No fracture is seen. Joints: No significant arthropathy or bony hypertrophy is seen. There is a minimal joint effusion. Soft Tissues: There is edema seen throughout the subcutaneous fat. There appears to be more focal fl uid in the anterior subcutaneous fat, anterior to the tibia and inferior to the patella. This corresp onds to the area of ill-defined fluid seen on the prior ultrasound examination. A well-formed delinea ezio abscess is not clearly identified this point but abscess formation may be occurring in this regio n. Other: No foreign bodies seen. Post Contrast: No abnormal areas of enhancement are seen in the marrow or soft tissues. CONCLUSION: Prominent inflammatory changes especially anteriorly. There appears to be fluid in the subcutaneous f at which is potentially organizing into an abscess. A well delineated abscess is not seen at this poi nt. Electronically signed by: Yehuda Stevens MD 07/05/2018 3:58 PM EST
--- NOTE | 2018-07-05 16:42 | ECG ---
Date Performed: 07/05/2018 Time Performed: 09:59:57 PTAGE: 27 years EKG: Sinus rhythm NONSPECIFIC T-WAVE ABNORMALITY THE ANTERIOR ST SEGMENT ELEVATION IS NONSPECIFIC, BUT THERE'S NO PRIO R TRACING FOR COMPARISON Clinical correlation is recommended BORDERLINE ECG NO PREVIOUS TRACING DOCTOR: Cami Parks Interpretating Date/Time 07/05/2018 16:39:58
[2018-07-05] MEDS: Enoxaparin Inj 100 MG/ML Syringe SQ SCH (21:26)
[2018-07-06] MEDS: Piperacil/Tazo 3.375 GM Premix 50 ML IV.SIG SCH ×5 (00:25→23:56)
[2018-07-06] MEDS: Vancomycin Inj 2,000 MG in Sodium Chlor 0.9% Inj 500 ML IV.SIG SCH ×2 (01:14→13:18)
[2018-07-06] MEDS: Sod Chloride 0.9% Inj 1,000 ML IV.CONT SCH ×2 (06:05→19:10)
[2018-07-06] MEDS: Lactobacillus Acidophilus/L. Spores Tablet PO SCH ×2 (09:10→21:44)
[2018-07-06] MEDS: Senna/Docusate Sodium 8.6/50 MG Tablet PO SCH ×2 (09:10→21:45)
[2018-07-06] MEDS: Enoxaparin Inj 100 MG/ML Syringe SQ SCH ×2 (09:10→21:43)
--- NOTE | 2018-07-06 17:20 | P.PNIM ---
Subjective Interval history: still having pain in right leg Physical Exam Vital signs: Last Vital Signs Temp 98.1 F 07/06/18 12:00 Pulse 87 07/06/18 12:00 Resp 20 07/06/18 12:00 BP 125/80 07/06/18 12:00 Pulse Ox 98 07/06/18 12:00 Intake & Output 07/04/18 07/05/18 07/06/18 07/07/18 06:59 06:59 06:59 06:59 Intake Total 500 / 500 3235.0 / 3235.0 4237.5 / 4237.5 1570 / 1570 Output Total 975 / 975 Balance 500 / 500 3235.0 / 3235.0 3262.5 / 3262.5 1570 / 1570 Weight 99.79 kg 90.718 kg Narrative: GENERAL: NAD SKIN: right leg swelling erythema red tender painful anterior lower knee entire tib fib swelling HEENT: No nasal bleeding or discharge. Mucous membranes pink and moist. NECK: No JVD. CARDIOVASCULAR: Regular rate and rhythm. RESPIRATORY: No accessory muscle use. Clear to auscultation. Breath sounds equal bilaterally. GASTROINTESTINAL: Abdomen soft, non-tender, nondistended. Hepatic and splenic margins not palpable. MUSCULOSKELETAL: Right lower leg swelling redness and tender and increased circumference of right > left leg. NEUROLOGICAL: Awake and alert. No obvious cranial nerve deficits. Motor grossly within normal limits. Five out of 5 muscle strength in the arms and legs. Normal speech. PSYCHIATRIC: Appropriate mood and affect; insight and judgment normal. Results Labs CBC & Chem 7: 07/07/18 06:45 07/07/18 06:45 Labs: Microbiology 07/04/18 01:48 Blood - Peripheral Aerobic Blood Culture - Preliminary No growth in 2 days 07/04/18 01:48 Blood - Peripheral Anaerobic Blood Culture - Preliminary No growth in 2 days 07/04/18 01:52 Blood - Peripheral Aerobic Blood Culture - Preliminary No growth in 2 days 07/04/18 01:52 Blood - Peripheral Anaerobic Blood Culture - Preliminary No growth in 2 days Assessment and Plan Plan 27-year-old man admitted sepsis and right lower extremity DVT Sepsis secondary to cellulitis Right lower extremity cellulitis Spider bite? vs inoculation from possible dirty needle Currently on IV vancomycin and Zosyn, blood cultures pending Pain management accordingly Rule out abscess with ultrasound, may need CT scan of right lower extremity Lactic acidosis minimally elevated 1.6, IV fluids telemetry Leukocytosis improving, continue treatment as above Right lower extremity DVT Doppler positive for right thrombus, will switch patient back from Xarelto to Lovenox in light of possible surgical evaluation based upon pending above imaging studies Tobacco abuse Counseling cessation provided nicotine patch Transaminitis Hep C + lovenox Progress Note: Quality VTE Deep Vein Thrombosis/Pulmonary Embolism Present on Admission: No
--- NOTE | 2018-07-06 18:01 | P.PNOP ---
Subjective Interval history: Patient seen in preop for I&D R knee prepatellar septic bursitis/abscess. However, patient reports eating japanese fries and drinking a soda 15 minutes prior to being brought to preop. Physical Exam Vital signs: Vital Signs 07/05/18 20:00 07/06/18 00:00 07/06/18 04:00 Temperature 100.6 F H 97.6 F 97.3 F L Pulse Rate 115 H 88 88 Respiratory Rate 16 20 20 Blood Pressure 135/102 H 125/77 153/96 H Pulse Oximetry 99 99 100 07/06/18 08:00 07/06/18 12:00 07/06/18 16:00 Temperature 97.7 F 98.1 F 97.5 F L Pulse Rate 89 87 77 Respiratory Rate 20 20 20 Blood Pressure 132/81 125/80 137/90 Pulse Oximetry 100 98 100 Intake & Output 07/05/18 07/06/18 07/06/18 18:59 06:59 18:59 Intake Total 1567.5 / 1567.5 2670 / 2670 1570 / 1570 Output Total 975 / 975 Balance 1567.5 / 1567.5 1695 / 1695 1570 / 1570 Intake: IV 1567.5 / 1567.5 2670 / 2670 1570 / 1570 NS Inj 1,000 ML @ 100 mls/hr IV 1000 / 1000 2000 / 2000 1000 / 1000 .CONT .Q10H [facility] Rx#:[id number] Zosyn 3.375 GM Premix 50 ML @ 50 / 50 150 / 150 50 / 50 100 mls/hr IV.SIG Q6H [facility] Rx#: [id number] Vancomycin Inj 2,000 MG In NS 517.5 / 517.5 520 / 520 520 / 520 Inj 500 ML @ 250 mls/hr IV.SIG Q12H [facility] Rx#:[id number] Output: Urine 975 / 975 Other: Date of Last Bowel Movement 07/03/18 07/03/18 07/03/18 # Bowel Movements 0 Narrative: Awake, alert RLE: knee with superficial fluctuance over anterior knee with persistent edema and erythema. Allows gentle ROM of the knee. NVI distally. Results - Labs CBC & Chem 7: 07/05/18 08:13 07/05/18 08:13 Microbiology 12/05/18 01:48 Blood - Peripheral Aerobic Blood Culture - Preliminary No growth in 2 days 07/04/18 01:48 Blood - Peripheral Anaerobic Blood Culture - Preliminary No growth in 2 days 07/04/18 01:52 Blood - Peripheral Aerobic Blood Culture - Preliminary No growth in 2 days 07/04/18 01:52 Blood - Peripheral Anaerobic Blood Culture - Preliminary No growth in 2 days Assessment and Plan - Assessment and Plan 27yo M with significant right knee erythema and edema with superficial fluid collection around prepatellar bursa, suspect infected bursa, in addition, positive DVT After CT scan, options of management were again reviewed with the patient. Nonoperative management with continued IV antibiotics and observation vs surgical intervention in the form of I&D R knee. Patient had agreed to R knee I& D, however, upon arriving in preop, patient reports he had just finished eating and drinking. With this in mind, surgery will be cancelled. Patient will be re-evaluated over the weekend and on Monday. Will discuss with my partner, Dr. Soriano who is consulting it architect over the weekend, but may plan on observation at this time and re-evaluation early next week. Continue antibiotics per medicine and ID.
[2018-07-07] MEDS: Vancomycin Inj 2,000 MG in Sodium Chlor 0.9% Inj 500 ML IV.SIG SCH ×2 (02:05→17:47)
[2018-07-07] MEDS: Sod Chloride 0.9% Inj 1,000 ML IV.CONT SCH ×2 (02:13→17:45)
[2018-07-07] MEDS: Piperacil/Tazo 3.375 GM Premix 50 ML IV.SIG SCH ×4 (06:42→23:25)
[2018-07-07 07:59] LABS: Baso % (Auto) 0.5 % (0.0-2.0); Eos # (Auto) 0.2 th/mm3 (0.0-0.4); Hematocrit 39.6 % (39.0-51.0); Hemoglobin 13.3 gm/dL (13.0-17.0); Lymph # (Auto) 1.7 th/mm3 (1.0-4.8); Lymph % (Auto) 22.3 % (9.0-44.0); Mean Corpuscular HGB Conc 33.6 % (32.0-36.0); Mean Corpuscular Volume 86.4 fL (80.0-100.0); Mean Platelet Volume 8.6 fL (7.0-11.0); Mono # (Auto) 0.5 th/mm3 (0.0-0.9); Mono % (Auto) 6.9 % (0.0-8.0); Neut # (Auto) 5.2 th/mm3 (1.8-7.7); Neut % (Auto) 67.3 % (16.0-70.0); Platelet Count 242 th/mm3 (150-450); Red Blood Count 4.59 mil/mm3 (4.50-5.90); White Blood Count 7.8 th/mm3 (4.0-11.0)
[2018-07-07 08:16] LABS: Calcium 7.7 mg/dL (8.5-10.1); Potassium 3.7 meq/L (3.5-5.1)
[2018-07-07] MEDS: Lactobacillus Acidophilus/L. Spores Tablet PO SCH ×2 (08:21→20:57)
[2018-07-07] MEDS: Senna/Docusate Sodium 8.6/50 MG Tablet PO SCH ×2 (08:21→20:57)
[2018-07-07] MEDS: Enoxaparin Inj 100 MG/ML Syringe SQ SCH ×2 (08:21→20:57)
[2018-07-07] MEDS ORDERED: Pharmacy Ordered Lab Info OTHER ONE (13:45)
--- NOTE | 2018-07-07 14:25 | P.PNOP ---
Subjective Interval history: Patient c/o right knee pain. Physical Exam Vital signs: Vital Signs 07/06/18 16:00 07/06/18 19:01 07/06/18 20:00 Temperature 97.5 F L 98 F Pulse Rate 79 86 Respiratory Rate 20 20 16 Blood Pressure 137/90 129/79 Pulse Oximetry 100 99 07/07/18 00:00 07/07/18 04:00 07/07/18 08:00 Temperature 97.7 F 98.0 F 97.7 F Pulse Rate 79 84 82 Respiratory Rate 20 20 18 Blood Pressure 145/96 H 123/63 139/81 Pulse Oximetry 100 96 98 07/07/18 12:00 Temperature 98.2 F Pulse Rate 77 Respiratory Rate 18 Blood Pressure 153/81 H Pulse Oximetry 99 Intake & Output 07/06/18 07/07/18 07/07/18 18:59 06:59 18:59 Intake Total 1570 / 1570 570 / 570 100 / 100 Output Total 600 / 600 425 / 425 Balance 970 / 970 145 / 145 100 / 100 Intake: IV 1570 / 1570 570 / 570 100 / 100 NS Inj 1,000 ML @ 100 mls/hr IV 1000 / 1000 .CONT .Q10H [facility] Rx#:[id number] Zosyn 3.375 GM Premix 50 ML @ 50 / 50 50 / 50 100 / 100 100 mls/hr IV.SIG Q6H [facility] Rx#: [id number] Vancomycin Inj 2,000 MG In NS 520 / 520 520 / 520 Inj 500 ML @ 250 mls/hr IV.SIG Q12H [facility] Rx#:[id number] Oral 0 / 0 Output: Urine 600 / 600 425 / 425 Other: # Voids 3 Date of Last Bowel Movement 07/03/18 07/03/18 # Bowel Movements 0 Narrative: Right knee moderate erythema moderate effusion small superficial area of necrotic skin tenderness to the area no active drainage noted acceptable knee ROM distally motor, neuro and sensory intact Results - Labs CBC & Chem 7: 07/07/18 06:45 07/07/18 06:45 Laboratory Results - last 24 hr 07/07/18 07/07/18 06:45 06:45 WBC 7.8 RBC 4.59 Hgb 13.3 Hct 39.6 MCV 86.4 MCH 29.0 MCHC 33.6 RDW 13.0 Plt Count 242 D MPV 8.6 Neut % (Auto) 67.3 Lymph % (Auto) 22.3 Sawyer % (Auto) 6.9 Eos % (Auto) 3.0 Baso % (Auto) 0.5 Neut # (Auto) 5.2 Lymph # (Auto) 1.7 Sawyer # (Auto) 0.5 Eos # (Auto) 0.2 Baso # (Auto) 0.0 WBC Differential . Differential Comment Auto diff final Sodium 141 Potassium 3.7 Chloride 107 Carbon Dioxide 25.0 Anion Gap 9 BUN 8 Creatinine 2.00 H Estimated GFR 40 L Random Glucose 99 Calcium 7.7 L Microbiology 07/04/18 01:48 Blood - Peripheral Aerobic Blood Culture - Preliminary No growth in 3 days 07/04/18 01:48 Blood - Peripheral Anaerobic Blood Culture - Preliminary No growth in 3 days 07/04/18 01:52 Blood - Peripheral Aerobic Blood Culture - Preliminary No growth in 3 days 07/04/18 01:52 Blood - Peripheral Anaerobic Blood Culture - Preliminary No growth in 3 days - Procedures Dr. Soriano assessed patient. He delaminated the necrotic skin with his fingers and expressed purulent drainage. Cultures were obtained and sent to lab. Dry dressing applied. Assessment and Plan - Assessment and Plan 27yo M with significant right knee erythema and edema with superficial fluid collection around prepatellar bursa, suspect infected bursa, in addition, positive DVT. Awaiting for cultures results Pain management Continue IV abx therapy per ID Daily dressing changes - clean with alcohol and apply a new dry dressing Weight bearing as tolerated Advised patient if the wound can drain on its own and his symptoms are improving , then there is the possibility that he can avoid surgery. Monitor
--- NOTE | 2018-07-07 14:30 | P.PNIM ---
Subjective Interval history: still has pain in rt leg and knee Physical Exam Vital signs: Last Vital Signs Temp 98.2 F 07/07/18 12:00 Pulse 77 07/07/18 12:00 Resp 18 07/07/18 12:00 BP 153/81 H 07/07/18 12:00 Pulse Ox 99 07/07/18 12:00 Intake & Output 07/05/18 07/06/18 07/07/18 07/08/18 06:59 06:59 06:59 06:59 Intake Total 3235.0 / 3235.0 4237.5 / 4237.5 2140 / 2140 100 / 100 Output Total 975 / 975 1025 / 1025 Balance 3235.0 / 3235.0 3262.5 / 3262.5 1115 / 1115 100 / 100 Weight 90.718 kg Narrative: GENERAL: NAD SKIN: right leg swelling erythema red tender painful anterior lower knee entire tib fib swelling HEENT: No nasal bleeding or discharge. Mucous membranes pink and moist. NECK: No JVD. CARDIOVASCULAR: Regular rate and rhythm. RESPIRATORY: No accessory muscle use. Clear to auscultation. Breath sounds equal bilaterally. GASTROINTESTINAL: Abdomen soft, non-tender, nondistended. Hepatic and splenic margins not palpable. MUSCULOSKELETAL: Right lower leg swelling redness and tender and increased circumference of right > left leg. NEUROLOGICAL: Awake and alert. No obvious cranial nerve deficits. Motor grossly within normal limits. Five out of 5 muscle strength in the arms and legs. Normal speech. PSYCHIATRIC: Appropriate mood and affect; insight and judgment normal. Results Labs CBC & Chem 7: 07/07/18 06:45 07/07/18 06:45 Labs: Microbiology 07/04/18 01:48 Blood - Peripheral Aerobic Blood Culture - Preliminary No growth in 3 days 07/04/18 01:48 Blood - Peripheral Anaerobic Blood Culture - Preliminary No growth in 3 days 07/04/18 01:52 Blood - Peripheral Aerobic Blood Culture - Preliminary No growth in 3 days 07/04/18 01:52 Blood - Peripheral Anaerobic Blood Culture - Preliminary No growth in 3 days Procedures Procedures: Dr. Soriano assessed patient. He delaminated the necrotic skin with his fingers and expressed purulent drainage. Cultures were obtained and sent to lab. Dry dressing applied. Assessment and Plan Plan 27-year-old man admitted sepsis and right lower extremity DVT Sepsis secondary to RLE cellulitis and pre patellar bursitis Patient reports spider bite? denies IVDU -Currently on IV vancomycin and Zosyn, blood cultures negative to date. -continue Pain management -Lactic acidosis minimally elevated 1.6, IV fluids was supposed to undergo washout yesterday, but he had eaten hence could not be taken to OR. -dc telemetry. Right lower extremity DVT -Doppler positive for right thrombus, will switch patient back from Xarelto to Lovenox in light of possible surgical evaluation based upon pending above imaging studies Tobacco abuse counseled on smoking cessation-nicotine patch Transaminitis-due to Hep C + Progress Note: Quality VTE Deep Vein Thrombosis/Pulmonary Embolism Present on Admission: No
[2018-07-08] MEDS: Sod Chloride 0.9% Inj 1,000 ML IV.CONT SCH ×3 (03:12→18:20)
[2018-07-08] MEDS: Piperacil/Tazo 3.375 GM Premix 50 ML IV.SIG SCH ×2 (06:10→12:01)
[2018-07-08] MEDS: Enoxaparin Inj 100 MG/ML Syringe SQ SCH ×2 (10:04→20:47)
[2018-07-08] MEDS: Lactobacillus Acidophilus/L. Spores Tablet PO SCH ×2 (10:07→20:47)
[2018-07-08] MEDS: Senna/Docusate Sodium 8.6/50 MG Tablet PO SCH ×2 (10:08→20:47)
[2018-07-08 11:47] LABS: Calcium 7.4 mg/dL (8.5-10.1); Carbon Dioxide 24.1 meq/L (21.0-32.0); Potassium 3.5 meq/L (3.5-5.1)
[2018-07-08 11:56] LABS: Albumin 1.8 g/dL (3.4-5.0); Calcium-Albumin Corrected 9.2 mg/dL (8.5-10.1)
--- NOTE | 2018-07-08 11:56 | P.PNOP ---
Subjective Interval history: Patient states he is not feeling well. Denies fever, sweats or chills. Family at bedside. Physical Exam Vital signs: Vital Signs 07/07/18 12:00 07/07/18 16:00 07/07/18 20:00 Temperature 98.2 F 98 F 98.5 F Pulse Rate 77 87 80 Respiratory Rate 18 18 18 Blood Pressure 153/81 H 152/89 H 134/92 H Pulse Oximetry 99 99 98 07/08/18 00:00 07/08/18 04:00 07/08/18 08:00 Temperature 97.7 F 97.8 F 98 F Pulse Rate 79 70 67 Respiratory Rate 18 18 18 Blood Pressure 138/97 H 140/97 H 142/93 H Pulse Oximetry 98 97 97 Intake & Output 07/07/18 07/08/18 07/08/18 18:59 06:59 18:59 Intake Total 1150 / 1150 1770 / 1770 Output Total 600 / 600 700 / 700 Balance 550 / 550 1070 / 1070 Intake: IV 1150 / 1150 1050 / 1050 NS Inj 1,000 ML @ 100 mls/hr IV 1000 / 1000 950 / 950 .CONT .Q10H [facility] Rx#:[id number] Zosyn 3.375 GM Premix 50 ML @ 150 / 150 100 / 100 100 mls/hr IV.SIG Q6H [facility] Rx#: [id number] Oral 720 / 720 Output: Urine 600 / 600 700 / 700 Narrative: Right knee erythema and effusion slowly improving purulent/bloody drainage noted on the dressing calves soft distally motor, neuro, and sensory intact Results - Labs CBC & Chem 7: 07/07/18 06:45 07/08/18 06:03 Laboratory Results - last 24 hr 07/07/18 07/08/18 07/08/18 17:45 06:03 06:03 Sodium 143 Potassium 3.5 Chloride 108 H Carbon Dioxide 24.1 Anion Gap 11 BUN 11 Creatinine 2.94 H Estimated GFR 26 L Random Glucose 82 Calcium 7.4 L* Vancomycin Trough 42.0 H Random Vancomycin 30.0 Microbiology 07/04/18 01:48 Blood - Peripheral Aerobic Blood Culture - Preliminary No growth in 4 days 07/04/18 01:48 Blood - Peripheral Anaerobic Blood Culture - Preliminary No growth in 4 days 07/04/18 01:52 Blood - Peripheral Aerobic Blood Culture - Preliminary No growth in 4 days 07/04/18 01:52 Blood - Peripheral Anaerobic Blood Culture - Preliminary No growth in 4 days - Procedures Dr. Soriano assessed patient. He delaminated the necrotic skin with his fingers and expressed purulent drainage. Cultures were obtained and sent to lab. Dry dressing applied. Assessment and Plan - Assessment and Plan 27yo M with significant right knee erythema and edema with superficial fluid collection around prepatellar bursa, suspect infected bursa, in addition, positive DVT. Awaiting for cultures results Pain management Continue IV abx therapy per ID Daily dressing changes - clean with alcohol and apply a new dry dressing Weight bearing as tolerated Advised patient if the wound can drain on its own and his symptoms are improving , then there is the possibility that he can avoid surgery. Monitor
--- NOTE | 2018-07-08 12:22 | P.PNIM ---
Subjective Interval history: still has some rt knee pain but some improvement. no other complaints. Physical Exam Vital signs: Last Vital Signs Temp 98 F 07/08/18 08:00 Pulse 67 07/08/18 08:00 Resp 18 07/08/18 08:00 BP 142/93 H 07/08/18 08:00 Pulse Ox 97 07/08/18 08:00 Intake & Output 07/06/18 07/07/18 07/08/18 07/09/18 06:59 06:59 06:59 06:59 Intake Total 4237.5 / 4237.5 2140 / 2140 2920 / 2920 Output Total 975 / 975 1025 / 1025 1300 / 1300 Balance 3262.5 / 3262.5 1115 / 1115 1620 / 1620 Narrative: GENERAL: NAD HEENT: No nasal bleeding or discharge. Mucous membranes pink and moist. NECK: No JVD. CARDIOVASCULAR: Regular rate and rhythm. RESPIRATORY: No accessory muscle use. Clear to auscultation. Breath sounds equal bilaterally. GASTROINTESTINAL: Abdomen soft, non-tender, nondistended. Hepatic and splenic margins not palpable. MUSCULOSKELETAL: Right knee swelling and erythema improving, drainage less. rt leg erythema improved. NEUROLOGICAL: Awake and alert. No obvious cranial nerve deficits. Motor grossly within normal limits. Five out of 5 muscle strength in the arms and legs. Normal speech. PSYCHIATRIC: Appropriate mood and affect; insight and judgment normal. Results Labs CBC & Chem 7: 07/07/18 06:45 07/08/18 06:03 Labs: Microbiology 07/04/18 01:48 Blood - Peripheral Aerobic Blood Culture - Preliminary No growth in 4 days 07/04/18 01:48 Blood - Peripheral Anaerobic Blood Culture - Preliminary No growth in 4 days 07/04/18 01:52 Blood - Peripheral Aerobic Blood Culture - Preliminary No growth in 4 days 07/04/18 01:52 Blood - Peripheral Anaerobic Blood Culture - Preliminary No growth in 4 days Procedures Procedures: Dr. Soriano assessed patient. He delaminated the necrotic skin with his fingers and expressed purulent drainage. Cultures were obtained and sent to lab. Dry dressing applied. Assessment and Plan Plan 27-year-old man admitted sepsis and right lower extremity DVT 1.Sepsis secondary to RLE cellulitis and pre patellar bursitis Patient reports spider bite? denies IVDU -blood cultures negative to date. wound culture pending -swelling improving wound draining, ortho f/up appreciated-if continues to drain ,may not need surgical intervention. Vanc on hold due to toxicity. reduced Zosyn dose to 2.25gm q6h given GFR of 26. -continue Pain management 2.Acute kidney injury-- likely related to Vanc toxicity, level was 40 yesterday. Holding Vanc, Zosyn dose adjusted to GFR. Avoid Nephrotoxins. strict I/O monitoring. patient informed of above -daily BMP. 3.Right lower extremity DVT -Doppler positive for right thrombus, will switch patient back from Xarelto to Lovenox in light of possible surgical evaluation based upon pending above imaging studies Tobacco abuse counseled on smoking cessation-nicotine patch Transaminitis-due to Hep C + Progress Note: Quality VTE Deep Vein Thrombosis/Pulmonary Embolism Present on Admission: No
[2018-07-08] MEDS: Piperacil/Tazo 2.25 GM Premix 50 ML IV.SIG SCH (18:21)
[2018-07-09] MEDS: Piperacil/Tazo 2.25 GM Premix 50 ML IV.SIG SCH ×4 (01:05→18:17)
[2018-07-09] MEDS: Sod Chloride 0.9% Inj 1,000 ML IV.CONT SCH ×4 (01:07→22:39)
[2018-07-09] MEDS: Lactobacillus Acidophilus/L. Spores Tablet PO SCH ×2 (09:10→21:46)
[2018-07-09] MEDS: Enoxaparin Inj 100 MG/ML Syringe SQ SCH (09:11)
[2018-07-09] MEDS: Senna/Docusate Sodium 8.6/50 MG Tablet PO SCH ×2 (09:11→21:45)
[2018-07-09 09:16] LABS: Albumin 1.8 g/dL (3.4-5.0); Anion Gap 9 meq/L (5-15); Aspartate Aminotransferase 42 U/L (15-37); Blood Urea Nitrogen 14 mg/dL (7-18); Calcium 8.1 mg/dL (8.5-10.1); Carbon Dioxide 25.5 meq/L (21.0-32.0); Chloride 105 meq/L (98-107); Glomerular Filtration Rate 20 mL/min (>89); Glucose,Random 87 mg/dL (74-106); Potassium 3.6 meq/L (3.5-5.1); Sodium 139 meq/L (136-145)
[2018-07-09 09:17] LABS: Alanine Aminotransferase 66 U/L (12-78)
[2018-07-09 09:20] LABS: Alkaline Phosphatase 84 U/L (45-117); Total Protein 5.9 g/dL (6.4-8.2); Vancomycin,Random 20.3 Comment
--- NOTE | 2018-07-09 12:57 | P.PNIM ---
Subjective Interval history: not in pain today, knee has been draining,dressing changed this morning. Physical Exam Vital signs: Last Vital Signs Temp 97.7 F 07/09/18 12:00 Pulse 71 07/09/18 12:00 Resp 18 07/09/18 12:00 BP 150/99 H 07/09/18 12:00 Pulse Ox 97 07/09/18 12:00 Intake & Output 07/07/18 07/08/18 07/09/18 07/10/18 06:59 06:59 06:59 06:59 Intake Total 2140 / 2140 2920 / 2920 2646.3 / 2646.3 Output Total 1025 / 1025 1300 / 1300 1800 / 1800 Balance 1115 / 1115 1620 / 1620 846.3 / 846.3 Weight 102.8 kg Narrative: GENERAL: NAD HEENT: No nasal bleeding or discharge. Mucous membranes pink and moist. NECK: No JVD. CARDIOVASCULAR: Regular rate and rhythm. RESPIRATORY: No accessory muscle use. Clear to auscultation. Breath sounds equal bilaterally. GASTROINTESTINAL: Abdomen soft, non-tender, nondistended. Hepatic and splenic margins not palpable. MUSCULOSKELETAL: Right knee swelling and erythema almost resolved, minimal drainage when i examined this morning.ROM at knee-patient able to flex and extend without pain. rt leg erythema improved. NEUROLOGICAL: Awake and alert. No obvious cranial nerve deficits. Motor grossly within normal limits. Five out of 5 muscle strength in the arms and legs. Normal speech. PSYCHIATRIC: Appropriate mood and affect; insight and judgment normal. Results Labs CBC & Chem 7: 07/07/18 06:45 07/09/18 07:10 Labs: Microbiology 07/04/18 01:48 Blood - Peripheral Aerobic Blood Culture - Final No growth in 5 days 07/04/18 01:48 Blood - Peripheral Anaerobic Blood Culture - Final No growth in 5 days 07/04/18 01:52 Blood - Peripheral Aerobic Blood Culture - Final No growth in 5 days 07/04/18 01:52 Blood - Peripheral Anaerobic Blood Culture - Final No growth in 5 days 07/07/18 13:45 Wound - Knee Gram Stain - Final 07/07/18 13:45 Wound - Knee Wound Culture - Final Staphylococcus aureus Procedures Procedures: Dr. Soriano assessed patient. He delaminated the necrotic skin with his fingers and expressed purulent drainage. Cultures were obtained and sent to lab. Dry dressing applied. Assessment and Plan Plan 27-year-old man who presented with rt knee swelling after a spider bite, found to have pre patella bursitis with sepsis and right lower extremity DVT. Hospital course complicated by acute kidney injury likely due to Vanc toxicity( level was 40.) 1.Sepsis secondary to RLE cellulitis and pre patellar bursitis Patient reports spider bite? denies IVDU -blood cultures negative to date. wound culture pending -swelling improving wound draining, ortho f/up appreciated-if continues to drain ,may not need surgical intervention. Vanc on hold due to toxicity. reduced Zosyn dose to 2.25gm q6h given GFR <30. -continue Pain management 2.Acute kidney injury-- likely related to Vanc toxicity, level was 40--trending down 20.Keep holding Vanc; Zosyn dose adjusted to GFR. Cr trend noted to be worse today-3.57 with GFR 20. likely he has gone into ATN. He is non oliguric presently with u/o 1800 in last 24 hr. Avoid Nephrotoxins. strict I/O monitoring. -check urinalysis, UPEP/SPEP. -daily BMP. -consulted renal to assist with management. 3.Right lower extremity DVT -Doppler positive for right thrombus, will switch patient back from Xarelto to Lovenox in light of possible surgical evaluation -Can switch back on discharge if renal function improves. Tobacco abuse counseled on smoking cessation-nicotine patch Transaminitis- likely due to Hep C +, liver enzymes trending down. Progress Note: Quality VTE Deep Vein Thrombosis/Pulmonary Embolism Present on Admission: No
--- NOTE | 2018-07-09 14:36 | P.CONNP ---
History of Present Illness Service: Nephrology Primary Care Provider: No Primary Care Physician Chief Complaint: Right knee pain following spider bite History of Present Illness: Mr. Rebollar is a 27 year old male with history of polysubstance abuse, but he denies IVDA. He was admitted with right lower extremity cellulitis, also diagnosed with DVT. Patient's creatinine was 1.08 on 07/05/18. It has progressively increased. Patient appears to be non oliguric. He received IV contrast with CT scan on 07/05. He has been on Vancomycin, and Vancomycin level was high at 42 on 07/07. Wound culture grew MSSA. Seen by Orthopedics, no surgery so far. Review of Systems Constitutional: Reports body ache(s), Reports malaise, Reports weakness, Denies anorexia, Denies chills Eyes: Denies blind spots, Denies blurry vision Ears, Nose, Mouth, and Throat: Denies abnormal hearing, Denies bleeding gums Cardiovascular: Denies chest pain, Denies chest pain at rest Gastrointestinal: Denies abdominal pain, Denies bright, red blood in stools, Denies heartburn Genitourinary: Denies decreased urination, Denies difficulty urinating, Denies urinary urgency PMFSH - History History Provided By: Patient - Medical History Medical History: Medical History (Last Reviewed 07/04/18 @ 00:59 by Zion Cortez Jr, RN) Patient denies medical problems - Surgical History Surgical History: Surgical History (Last Updated 07/04/18 @ 00:59 by Zion Cortez Jr, RN) History of mandibular surgery - Family History Family History: Family History (Last Updated 07/04/18 @ 10:37 by Chuck Maldonado MD) Other Congestive heart failure (CHF) - Tobacco History Second Hand Smoke Exposure: Yes Tobacco Use In Past 30 Days: Yes Smoking Status: Light tobacco smoker Tobacco Type: Cigars - Alcohol History How Often Do You Have a Drink Containing Alcohol: Never - Substance Use History Substance History: No History of Abuse - Travel History Recent Travel in the [place] Within the Last 8 Weeks: No Recent Travel Out of the Country Within the Last 8 Weeks: No - Immunization History Tetanus Immunization: Unsure Hx Influenza Vaccine This Season: No Medications and Allergies Active Medications: Active Medications Acetaminophen (Tylenol) 650 mg PO Q4H PRN PRN Reason: Temp > 100.4 Last Admin: 07/05/18 21:27 Dose: 650 mg Hydrocodone Bitart/Acetaminophen (War 5/325) 1 tab PO Q4H PRN PRN Reason: pain scale 5 to 10 Last Admin: 07/09/18 13:18 Dose: 1 tab Al Hydroxide/Mg Hydroxide (Milk Of Magnesia Liq) 30 ml PO Q12H PRN PRN Reason: Mild Constipation Bisacodyl (Dulcolax Supp) 10 mg RECTAL DAILY PRN PRN Reason: SEVERE CONSITIPATION Sodium Chloride (Ns Inj) 1,000 mls @ 100 mls/hr IV.CONT .Q10H [facility] Last Admin: 07/09/18 13:20 Dose: 100 mls/hr Vancomycin HCl 2,000 mg/ (Sodium Chloride) 520 mls @ 250 mls/hr IV.SIG Q12H [facility] Last Admin: 07/07/18 17:47 Dose: Not Given Piperacillin/Tazobactam/Dextrose (Zosyn 2.25 Gm Premix) 50 mls @ 100 mls/hr IV.SIG Q6H [facility] Last Infusion: 07/09/18 13:49 Dose: Infused Heparin Sodium/Dextrose (Heparin/D5w 25,000 U/250 Ml) 25,000 unit in 250 mls @ 0 mls/hr IV.CONT TITRATE PRN; Protocol PRN Reason: Per Protocol Lactobacillus Acidophilus (Lactinex) 1 tab PO BID [facility] Last Admin: 07/09/18 09:10 Dose: 1 tab Lactulose (Lactulose Liq) 30 ml PO DAILY PRN PRN Reason: SEVERE CONSITIPATION Naloxone HCl (Narcan Inj) 0.4 mg IV.PUSH UNSCH PRN PRN Reason: SEE LABEL COMMENTS Ondansetron HCl (Zofran Inj) 4 mg IV.PUSH Q6H PRN PRN Reason: NAUSEA OR VOMITING Last Admin: 07/08/18 17:05 Dose: 4 mg Pharmacy Profile Note (Vancomycin Consult Pharmacy) 1 each OTHER UNSCH PRN PRN Reason: Pharmacy to dose Senna/Docusate Sodium (Jenny-Colace) 1 tab PO BID [facility] Last Admin: 07/09/18 09:11 Dose: Not Given Sennosides (Senokot) 17.2 mg PO Q12H PRN PRN Reason: Moderate Constipation Sodium Chloride (Ns Flush) 2 ml IV.FLUSH BID [facility] Last Admin: 12/10/18 09:11 Dose: Not Given Sodium Chloride (Ns Flush) 2 ml IV.FLUSH PRN PRN PRN Reason: FLUSH AFTER USING IV ACCESS Allergies Allergy/AdvReac Type Severity Reaction Status Date / Time No Known Allergies Allergy Verified 07/04/18 00:02 Home Medications Medication Instructions Recorded Confirmed Type No Known Home Medications 07/04/18 07/04/18 History Exam Vital signs: Vital Signs 07/08/18 16:00 07/08/18 20:00 07/09/18 00:00 Temperature 98 F 98.2 F 98.0 F Pulse Rate 83 69 77 Respiratory Rate 18 18 19 Blood Pressure 138/91 H 146/101 H 155/97 H Pulse Oximetry 99 99 97 07/09/18 04:00 07/09/18 08:00 07/09/18 12:00 Temperature 98.2 F 97.6 F 97.7 F Pulse Rate 80 63 71 Respiratory Rate 18 18 18 Blood Pressure 153/92 H 163/117 H 150/99 H Pulse Oximetry 96 99 97 Intake & Output 07/08/18 07/09/18 07/09/18 18:59 06:59 18:59 Intake Total 1050 / 1050 1596.3 / 1596.3 1050 / 1050 Output Total 700 / 700 1100 / 1100 Balance 350 / 350 496.3 / 496.3 1050 / 1050 Weight 102.8 kg Intake: IV 1050 / 1050 1116.3 / 1116.3 1050 / 1050 NS Inj 1,000 ML @ 100 mls/hr IV 1000 / 1000 966.3 / 966.3 1000 / 1000 .CONT .Q10H [facility] Rx#:[id number] Zosyn 2.25 GM Premix 50 ML @ 150 / 150 50 / 50 100 mls/hr IV.SIG Q6H [facility] Rx#: [id number] Zosyn 3.375 GM Premix 50 ML @ 50 / 50 100 mls/hr IV.SIG Q6H [facility] Rx#: [id number] Oral 480 / 480 Output: Urine 700 / 700 1100 / 1100 Other: # Voids 1 Date of Last Bowel Movement 07/03/18 # Bowel Movements 1 - Constitutional no acute distress - Routine HEENT Exam Head: Present: normocephalic, atraumatic Eye: Present: EOMI, PERRL ENT: Present: mucous membranes moist - Routine Neck Exam Present: supple, full ROM. Absent: JVD, lymphadenopathy - Routine Chest/Breast/Axilla Exam Chest wall: Absent: tenderness Axillae: Absent: lymphadenopathy - Routine Respiratory Exam Present: CTA bilaterally. Absent: accessory muscle use, respiratory distress - Routine Cardiovascular Exam Present: RRR, S1, S2 - Routine Abdominal Exam Present: soft, normoactive bowel sounds - Routine Extremities Exam Present: edema, full ROM - Routine Skin Exam Absent: cyanosis, erythema, gangrene - Routine Neurological Exam Present: alert, oriented X3, CN II-XII intact Results - Lab Results 07/07/18 06:45 07/09/18 07:10 Most recent lab results Calcium 8.1 mg/dL (8.5-10.1) L 07/09/18 07:10 Assessment and Plan - Assessment (1) Acute kidney injury Code(s): N17.9 - Acute kidney failure, unspecified Status: Acute Plan: Could be secondary to Vancomycin induced nephrotoxicity. It has been stopped at this time. Monitor urine output and renal function. Patient did receive IV contrast earlier. Avoid nephrotoxic agents. No need for IVF as long as his oral intake is adequate. (2) Cellulitis Code(s): L03.90 - Cellulitis, unspecified Status: Acute - Plan Being followed by orthopedics. Was on Vancomycin, now stopped. Management per hospitalist. - Attending Attestation Thanks for the consult.
[2018-07-09 19:18] LABS: Bacteria,Urine Occasional /hpf; Bilirubin,Urine Negative (Negative); Clarity,Urine Clear (Clear); Color,Urine Yellow (Yellw/Straw); Glucose,Urine (UA) Negative (Negative); Leukocyte Esterase,Urine Trace (Negative); Mucus,Urine Few /lpf (Occasional); Nitrite,Urine Negative (Negative); Specific Gravity,Urine 1.011 (1.002-1.035); Squamous Epithelial Cell,Urine <1 /hpf (0-5)
[2018-07-10 01:09] LABS: Activated Partial Thrombo Time 31.7 sec (23.4-31.7); INR 1.1 Ratio; Prothrombin Time 10.8 sec (9.8-11.6)
[2018-07-10] MEDS: Heparin Drip 25,000 UNIT/250 ML BAG IV.CONT PRN ×2 (01:35→15:07)
[2018-07-10] MEDS: Sod Chloride 0.9% Inj 1,000 ML IV.CONT SCH ×3 (01:36→21:05)
[2018-07-10 08:46] LABS: Hematocrit 39.9 % (39.0-51.0); Hemoglobin 13.6 gm/dL (13.0-17.0); Mean Corpuscular Hemoglobin 28.9 pg (27.0-34.0); Mean Corpuscular Volume 84.9 fL (80.0-100.0); Mean Platelet Volume 8.3 fL (7.0-11.0); Platelet Count 270 th/mm3 (150-450); White Blood Count 9.8 th/mm3 (4.0-11.0)
[2018-07-10] MEDS: Lactobacillus Acidophilus/L. Spores Tablet PO SCH ×2 (08:50→20:58)
[2018-07-10] MEDS: Senna/Docusate Sodium 8.6/50 MG Tablet PO SCH ×2 (08:51→20:58)
[2018-07-10 08:55] LABS: Calcium 8.2 mg/dL (8.5-10.1); Carbon Dioxide 24.4 meq/L (21.0-32.0); Potassium 3.7 meq/L (3.5-5.1)
[2018-07-10 08:57] LABS: Vancomycin,Random 13.4 Comment
[2018-07-10] MEDS ORDERED: Heparin 10,000 UNITS/10 ML Vial (for IV use) IV.PUSH PRN ×2 (10:06→10:07)
--- NOTE | 2018-07-10 12:31 | P.PNIM ---
Subjective Interval history: Patient says he feels nauseous today. He also admits to using heroin 2 days ago while in the hospital. He says he brought some into the hospital and sniffed it a few days ago. Physical Exam Vital signs: Vital Signs 07/09/18 16:00 07/09/18 20:00 07/10/18 00:00 Temperature 98.1 F 98.5 F 98.3 F Pulse Rate 73 82 74 Respiratory Rate 18 20 20 Blood Pressure 165/112 H 157/108 H 154/90 H Pulse Oximetry 100 100 98 07/10/18 04:00 07/10/18 08:00 Temperature 98.5 F 97.9 F Pulse Rate 59 L 62 Respiratory Rate 20 18 Blood Pressure 148/96 H 160/92 H Pulse Oximetry 98 99 Intake & Output 07/09/18 07/10/18 07/10/18 18:59 06:59 18:59 Intake Total 1100 / 1100 766 / 766 1000 / 1000 Output Total 2200 / 2200 500 / 500 100 / 100 Balance -1100 / -1100 266 / 266 900 / 900 Weight 104.4 kg Intake: IV 1100 / 1100 766 / 766 1000 / 1000 NS Inj 1,000 ML @ 100 mls/hr IV 1000 / 1000 766 / 766 1000 / 1000 .CONT .Q10H [facility] Rx#:[id number] Zosyn 2.25 GM Premix 50 ML @ 100 / 100 100 mls/hr IV.SIG Q6H [facility] Rx#: [id number] Output: Urine 2200 / 2200 500 / 500 100 / 100 Other: Date of Last Bowel Movement 07/03/18 Narrative: General patient in no acute distress HEENT extraocular movements are intact, clear oropharyngeal mucosa, no JVD Cardiovascular S1-S2 audible, RRR, no murmurs rubs or gallops Respiratory clear to auscultation bilaterally Abdomen soft, nontender, nondistended, normal bowel sounds Extremities right knee with minimal erythema, small scab covering the knee. No active drainage. Neuro cranial nerves II through XII intact Results - Labs CBC & Chem 7: 07/10/18 08:18 07/10/18 08:18 Laboratory Results - last 24 hr 07/09/18 07/10/18 07/10/18 17:31 00:18 08:18 WBC 9.8 RBC 4.70 Hgb 13.6 Hct 39.9 MCV 84.9 MCH 28.9 MCHC 34.0 RDW 13.0 Plt Count 270 MPV 8.3 PT 10.8 INR 1.1 APTT 31.7 Sodium Potassium Chloride Carbon Dioxide Anion Gap BUN Creatinine Estimated GFR Random Glucose Calcium Urine Color Yellow Urine Clarity Clear Urine pH 5.0 Ur Specific Freedom 1.011 Urine Protein 30 H Urine Glucose (UA) Negative Urine Ketones Negative Urine Occult Blood Negative Urine Nitrate Negative Urine Bilirubin Negative Urine Urobilinogen Less than 2 Ur Leukocyte Esterase Trace H Urine RBC Less than 1 Urine WBC 4 Ur Squamous Epith Cells <1 Urine Bacteria Occasional H Urine Mucus Few H Ur Microscopic Review Not Reportable Random Vancomycin 07/10/18 07/10/18 08:18 08:18 WBC RBC Hgb Hct MCV MCH MCHC RDW Plt Count MPV PT INR APTT 31.3 Sodium 138 Potassium 3.7 Chloride 105 Carbon Dioxide 24.4 Anion Gap 9 BUN 14 Creatinine 3.40 H Estimated GFR 22 L Random Glucose 93 Calcium 8.2 L Urine Color Urine Clarity Urine pH Ur Specific Freedom Urine Protein Urine Glucose (UA) Urine Ketones Urine Occult Blood Urine Nitrate Urine Bilirubin Urine Urobilinogen Ur Leukocyte Esterase Urine RBC Urine WBC Ur Squamous Epith Cells Urine Bacteria Urine Mucus Ur Microscopic Review Random Vancomycin 13.4 Microbiology 07/04/18 01:48 Blood - Peripheral Aerobic Blood Culture - Final No growth in 5 days 07/04/18 01:48 Blood - Peripheral Anaerobic Blood Culture - Final No growth in 5 days 07/04/18 01:52 Blood - Peripheral Aerobic Blood Culture - Final No growth in 5 days 07/04/18 01:52 Blood - Peripheral Anaerobic Blood Culture - Final No growth in 5 days 07/07/18 13:45 Wound - Knee Gram Stain - Final 07/07/18 13:45 Wound - Knee Wound Culture - Final Staphylococcus aureus - Procedures Dr. Soriano assessed patient. He delaminated the necrotic skin with his fingers and expressed purulent drainage. Cultures were obtained and sent to lab. Dry dressing applied. Assessment and Plan - Plan This patient is a 27-year-old male with a history of IV drug use who presented with complaints of right knee swelling after a suspected spider bite. Patient was found to have prepatellar bursitis and sepsis. Ultrasound imaging showed a DVT to the right lower extremity. During the hospitalization the patient received IV contrast for evaluation of possible abscess formation in the right lower extremity and was on vancomycin.. He began to have a significant elevation of his serum creatinine. 1. Sepsis secondary to right lower extremity cellulitis and prepatellar bursitis. 2. Right lower extremity DVT. Patient was febrile on admission. He also had an elevated WBC count. Right lower extremity shows erythema swelling. Patient currently on antibiotics. Orthopedics evaluated the patient and does not recommend any surgical intervention at this point as the wound is draining. Currently on heparin drip for the right lower extremity DVT. Continue pain medication as needed. 3. Acute kidney injury On admission serum creatinine 0.9, currently 3.4 as of today. Because possibly secondary to IV contrast or possibly IV vancomycin. Nephrology evaluated the patient. Vancomycin held, Zosyn discontinued. Follow-up a.m. renal panel. Avoid nephrotoxic agents. 4. Tobacco use Patient counseled on smoking cessation. Nicotine patch. 5. Transaminitis Likely due to hepatitis C. LFTs have down trended slightly. DVT prophylaxis, patient currently on heparin drip.
--- NOTE | 2018-07-10 15:26 | P.PNNP ---
Subjective Interval history: patient was seen and examined. His renal function has improved. He is non oliguric. He is thinking that he is going into opioid withdrawal. Physical Exam Vital signs: Vital Signs 07/09/18 16:00 07/09/18 20:00 07/10/18 00:00 Temperature 98.1 F 98.5 F 98.3 F Pulse Rate 73 82 74 Respiratory Rate 18 20 20 Blood Pressure 165/112 H 157/108 H 154/90 H Pulse Oximetry 100 100 98 07/10/18 04:00 07/10/18 08:00 07/10/18 12:00 Temperature 98.5 F 97.9 F 97.8 F Pulse Rate 59 L 62 67 Respiratory Rate 20 18 20 Blood Pressure 148/96 H 160/92 H 152/100 H Pulse Oximetry 98 99 100 Intake & Output 07/09/18 07/10/18 07/10/18 18:59 06:59 18:59 Intake Total 1100 / 1100 766 / 766 1250 / 1250 Output Total 2200 / 2200 500 / 500 100 / 100 Balance -1100 / -1100 266 / 266 1150 / 1150 Weight 104.4 kg Intake: IV 1100 / 1100 766 / 766 1250 / 1250 Heparin/D5W 25,000 U/250 mL 25, 250 / 250 000 unit In 250 ml @ Per Protocol IV.CONT TITRATE PRN Rx #:[id number] NS Inj 1,000 ML @ 100 mls/hr IV 1000 / 1000 766 / 766 1000 / 1000 .CONT .Q10H [facility] Rx#:[id number] Zosyn 2.25 GM Premix 50 ML @ 100 / 100 100 mls/hr IV.SIG Q6H [facility] Rx#: [id number] Output: Urine 2200 / 2200 500 / 500 100 / 100 Other: Date of Last Bowel Movement 07/03/18 Narrative: General patient in no acute distress HEENT extraocular movements are intact, clear oropharyngeal mucosa, no JVD Cardiovascular S1-S2 audible, RRR, no murmurs rubs or gallops Respiratory clear to auscultation bilaterally Abdomen soft, nontender, nondistended, normal bowel sounds Extremities right knee with minimal erythema, small scab covering the knee. No active drainage. Neuro cranial nerves II through XII intact - Constitutional no acute distress - Routine HEENT Exam Head: Present: normocephalic Eye: Present: EOMI - Routine Neck Exam Present: supple. Absent: lymphadenopathy - Routine Cardiovascular Exam Present: RRR, S1, S2 - Routine Abdominal Exam Present: soft - Routine Extremities Exam Absent: edema Comments: erythema on his leg is improving. Assessment and Plan - Assessment (1) Acute kidney injury Code(s): N17.9 - Acute kidney failure, unspecified Status: Acute Plan: Could be secondary to Vancomycin induced nephrotoxicity. It has been stopped at this time. Monitor urine output and renal function. Patient did receive IV contrast earlier. Avoid nephrotoxic agents. No need for IVF as long as his oral intake is adequate. (2) Cellulitis Code(s): L03.90 - Cellulitis, unspecified Status: Acute - Plan Being followed by orthopedics. Was on Vancomycin, now stopped. Management per hospitalist.
[2018-07-11] MEDS: Heparin Drip 25,000 UNIT/250 ML BAG IV.CONT PRN ×2 (04:53→19:16)
[2018-07-11] MEDS: Senna/Docusate Sodium 8.6/50 MG Tablet PO SCH ×2 (09:44→22:08)
[2018-07-11] MEDS: Lactobacillus Acidophilus/L. Spores Tablet PO SCH ×2 (09:44→22:08)
--- NOTE | 2018-07-11 10:58 | P.PNIM ---
Subjective Interval history: Patient complains of generalized pain this morning. No other complaints from the patient. He says he is looking forward to getting healthy and clean. Physical Exam Vital signs: Vital Signs 07/10/18 12:00 07/10/18 16:00 07/10/18 20:00 Temperature 97.8 F 97.8 F 98.5 F Pulse Rate 67 64 89 Respiratory Rate 20 20 20 Blood Pressure 152/100 H 154/98 H 113/68 Pulse Oximetry 100 100 97 07/11/18 00:00 07/11/18 03:29 07/11/18 08:00 Temperature 97.6 F 97.4 F L Pulse Rate 75 62 Respiratory Rate 20 18 20 Blood Pressure 159/90 H 150/70 H Pulse Oximetry 100 100 Intake & Output 07/10/18 07/11/18 07/11/18 18:59 06:59 18:59 Intake Total 1250 / 1250 2230 / 2230 Output Total 100 / 100 950 / 950 Balance 1150 / 1150 1280 / 1280 Weight 104.2 kg Intake: IV 1250 / 1250 1250 / 1250 Heparin/D5W 25,000 U/250 mL 25, 250 / 250 250 / 250 000 unit In 250 ml @ Per Protocol IV.CONT TITRATE PRN Rx #:[id number] NS Inj 1,000 ML @ 75 mls/hr IV. 1000 / 1000 1000 / 1000 CONT .[id number] [facility] Rx#:[id number] Oral 980 / 980 Output: Urine 100 / 100 950 / 950 Other: # Voids 3 Date of Last Bowel Movement 07/10/18 07/10/18 Narrative: General patient in no acute distress HEENT extraocular movements are intact, clear oropharyngeal mucosa, no JVD Cardiovascular S1-S2 audible, RRR, no murmurs rubs or gallops Respiratory clear to auscultation bilaterally Abdomen soft, nontender, nondistended, normal bowel sounds Extremities right knee with minimal erythema, small scab covering the knee. No active drainage. Neuro cranial nerves II through XII intact Results - Labs CBC & Chem 7: 07/10/18 08:18 07/10/18 08:18 Laboratory Results - last 24 hr 07/10/18 07/10/18 07/11/18 18:45 18:45 02:04 APTT 40.3 H D 49.2 H D Total Protein (PEP) 5.8 L - Procedures Dr. Soriano assessed patient. He delaminated the necrotic skin with his fingers and expressed purulent drainage. Cultures were obtained and sent to lab. Dry dressing applied. Assessment and Plan - Plan This patient is a 27-year-old male with a history of IV drug use who presented with complaints of right knee swelling after a suspected spider bite. Patient was found to have prepatellar bursitis and sepsis. Ultrasound imaging showed a DVT to the right lower extremity. During the hospitalization the patient received IV contrast for evaluation of possible abscess formation in the right lower extremity and was on vancomycin.. He began to have a significant elevation of his serum creatinine. 1. Sepsis secondary to right lower extremity cellulitis and prepatellar bursitis. 2. Right lower extremity DVT. Patient was febrile on admission. He also had an elevated WBC count. Right lower extremity shows erythema swelling. Patient currently on antibiotics. Orthopedics evaluated the patient and does not recommend any surgical intervention at this point as the wound is draining. Currently on heparin drip for the right lower extremity DVT given the patient's current acute kidney injury. Continue pain medication as needed. 3. Acute kidney injury On admission serum creatinine 0.9, currently 3.4 as of yesterday. Labs from today pending. Because possibly secondary to IV contrast or possibly IV vancomycin. Nephrology following the patient. Vancomycin held, Zosyn discontinued. Follow-up Renal panel from today and tomorrow am. Avoid nephrotoxic agents. 4. Tobacco use Patient counseled on smoking cessation. Nicotine patch. 5. Transaminitis Likely due to hepatitis C. LFTs have down trended slightly. DVT prophylaxis, patient currently on heparin drip.
[2018-07-11 11:32] LABS: Hematocrit 38.8 % (39.0-51.0); Hemoglobin 12.9 gm/dL (13.0-17.0); Mean Corpuscular HGB Conc 33.3 % (32.0-36.0); Mean Corpuscular Hemoglobin 28.3 pg (27.0-34.0); Mean Platelet Volume 8.6 fL (7.0-11.0); Platelet Count 337 th/mm3 (150-450); Red Blood Count 4.57 mil/mm3 (4.50-5.90); Red Cell Distribution Width 13.3 % (11.6-17.2); White Blood Count 12.3 th/mm3 (4.0-11.0)
[2018-07-11 11:48] LABS: Calcium 7.8 mg/dL (8.5-10.1); Carbon Dioxide 26.1 meq/L (21.0-32.0); Magnesium 2.1 mg/dL (1.5-2.5); Potassium 3.6 meq/L (3.5-5.1)
--- NOTE | 2018-07-11 12:06 | P.PNNP ---
Subjective Interval history: Patient was seen, stated he had abdominal pain. Denies nausea/vomiting, chest pain, SOB. Patient's renal function has continued to improve. IV fluids have been stopped. <Keesha Tim - Last Filed: 07/11/18 12:07> Physical Exam Vital signs: Vital Signs 07/10/18 16:00 07/10/18 20:00 07/11/18 00:00 Temperature 97.8 F 98.5 F 97.6 F Pulse Rate 64 89 75 Respiratory Rate 20 20 20 Blood Pressure 154/98 H 113/68 159/90 H Pulse Oximetry 100 97 100 07/11/18 03:29 07/11/18 08:00 Temperature 97.4 F L Pulse Rate 62 Respiratory Rate 18 20 Blood Pressure 150/70 H Pulse Oximetry 100 Intake & Output 07/10/18 07/11/18 07/11/18 18:59 06:59 18:59 Intake Total 1250 / 1250 2230 / 2230 Output Total 100 / 100 950 / 950 Balance 1150 / 1150 1280 / 1280 Weight 104.2 kg Intake: IV 1250 / 1250 1250 / 1250 Heparin/D5W 25,000 U/250 mL 25, 250 / 250 250 / 250 000 unit In 250 ml @ Per Protocol IV.CONT TITRATE PRN Rx #:[id number] NS Inj 1,000 ML @ 75 mls/hr IV. 1000 / 1000 1000 / 1000 CONT .[id number] [facility] Rx#:[id number] Oral 980 / 980 Output: Urine 100 / 100 950 / 950 Other: # Voids 3 Date of Last Bowel Movement 07/10/18 07/10/18 - Constitutional mild distress - Routine HEENT Exam Head: Present: normocephalic Eye: Present: EOMI, PERRL ENT: Present: mucous membranes moist - Routine Neck Exam Present: trachea midline. Absent: tracheal deviation - Routine Respiratory Exam Present: CTA bilaterally. Absent: respiratory distress - Routine Cardiovascular Exam Present: RRR. Absent: murmur - Routine Abdominal Exam Present: soft, normoactive bowel sounds - Routine Extremities Exam Present: edema - Routine Neurological Exam Present: alert, oriented X3 <Keesha Tim - Last Filed: 07/11/18 12:07> Vital signs: Vital Signs 07/10/18 20:00 07/11/18 00:00 07/11/18 03:29 Temperature 98.5 F 97.6 F Pulse Rate 89 75 Respiratory Rate 20 20 18 Blood Pressure 113/68 159/90 H Pulse Oximetry 97 100 07/11/18 08:00 07/11/18 12:00 07/11/18 16:00 Temperature 97.4 F L 97.7 F 98.1 F Pulse Rate 62 75 94 H Respiratory Rate 18 18 18 Blood Pressure 150/70 H 170/91 H 106/70 Pulse Oximetry 100 99 97 Intake & Output 07/10/18 07/11/18 07/11/18 18:59 06:59 18:59 Intake Total 1250 / 1250 2230 / 2230 1000 / 1000 Output Total 100 / 100 950 / 950 Balance 1150 / 1150 1280 / 1280 1000 / 1000 Weight 104.2 kg Intake: IV 1250 / 1250 1250 / 1250 1000 / 1000 Heparin/D5W 25,000 U/250 mL 25, 250 / 250 250 / 250 000 unit In 250 ml @ Per Protocol IV.CONT TITRATE PRN Rx #:[id number] NS Inj 1,000 ML @ 75 mls/hr IV. 1000 / 1000 1000 / 1000 1000 / 1000 CONT .[id number] [facility] Rx#:[id number] Oral 980 / 980 Output: Urine 100 / 100 950 / 950 Other: # Voids 3 Date of Last Bowel Movement 07/10/18 07/10/18 07/10/18 <Philip Paulino - Last Filed: 07/11/18 18:45> Assessment and Plan - Assessment (1) Acute kidney injury Code(s): N17.9 - Acute kidney failure, unspecified Status: Acute Plan: Could be secondary to Vancomycin induced nephrotoxicity. It has been stopped at this time. Monitor urine output and renal function. Patient did receive IV contrast earlier. Avoid nephrotoxic agents. Patient's renal function has continued to improve. Will stop IV fluids. (2) Cellulitis Code(s): L03.90 - Cellulitis, unspecified Status: Acute - Plan Being followed by orthopedics. Was on Vancomycin, now stopped. Management per hospitalist. <Keesha Tim - Last Filed: 07/11/18 12:07> - Assessment (1) Acute kidney injury Code(s): N17.9 - Acute kidney failure, unspecified Status: Acute (2) Cellulitis Code(s): L03.90 - Cellulitis, unspecified Status: Acute - Attending Attestation patient was seen and examined. I agree with above assessment and plan. <Philip Paulino - Last Filed: 07/11/18 18:45>
[2018-07-11] MEDS: Sod Chloride 0.9% Inj 1,000 ML IV.CONT SCH (12:15)
[2018-07-12 07:35] LABS: Hematocrit 35.8 % (39.0-51.0); Hemoglobin 12.3 gm/dL (13.0-17.0); Mean Corpuscular HGB Conc 34.4 % (32.0-36.0); Mean Corpuscular Hemoglobin 28.6 pg (27.0-34.0); Mean Corpuscular Volume 83.1 fL (80.0-100.0); Mean Platelet Volume 8.2 fL (7.0-11.0); Platelet Count 350 th/mm3 (150-450); Red Blood Count 4.31 mil/mm3 (4.50-5.90); White Blood Count 12.5 th/mm3 (4.0-11.0)
[2018-07-12 08:04] LABS: Calcium 8.2 mg/dL (8.5-10.1); Carbon Dioxide 25.5 meq/L (21.0-32.0); Phosphorus 3.4 mg/dL (2.5-4.9); Potassium 3.3 meq/L (3.5-5.1)
[2018-07-12] MEDS: Lactobacillus Acidophilus/L. Spores Tablet PO SCH ×2 (09:23→22:22)
[2018-07-12] MEDS: Senna/Docusate Sodium 8.6/50 MG Tablet PO SCH ×2 (09:41→22:23)
[2018-07-12] MEDS: Heparin Drip 25,000 UNIT/250 ML BAG IV.CONT PRN ×2 (09:41→23:04)
--- NOTE | 2018-07-12 15:42 | P.PNIM ---
Subjective Interval history: Patient is in no acute distress currently. He is requesting to go home as he says his mother is sick. Physical Exam Vital signs: Vital Signs 07/11/18 16:00 07/11/18 20:00 07/12/18 00:00 Temperature 98.1 F 97.7 F 98.1 F Pulse Rate 94 H 61 61 Respiratory Rate 18 18 18 Blood Pressure 106/70 188/96 H 132/84 Pulse Oximetry 97 98 98 07/12/18 04:00 07/12/18 08:00 07/12/18 12:00 Temperature 97.2 F L 98.0 F 97.5 F L Pulse Rate 68 77 75 Respiratory Rate 18 13 12 Blood Pressure 152/80 H 150/80 H 145/85 H Pulse Oximetry 96 99 99 Intake & Output 07/11/18 07/12/18 07/12/18 18:59 06:59 18:59 Intake Total 1730 / 1730 780 / 780 250 / 250 Balance 1730 / 1730 780 / 780 250 / 250 Weight 104 kg Intake: IV 1250 / 1250 250 / 250 Heparin/D5W 25,000 U/250 mL 25, 250 / 250 250 / 250 000 unit In 250 ml @ Per Protocol IV.CONT TITRATE PRN Rx #:[id number] NS Inj 1,000 ML @ 75 mls/hr IV. 1000 / 1000 CONT .[id number] [facility] Rx#:[id number] Oral 480 / 480 780 / 780 Other: # Voids 3 3 Date of Last Bowel Movement 07/10/18 07/12/18 # Bowel Movements 0 4 Narrative: General patient in no acute distress HEENT extraocular movements are intact, clear oropharyngeal mucosa, no JVD Cardiovascular S1-S2 audible, RRR, no murmurs rubs or gallops Respiratory clear to auscultation bilaterally Abdomen soft, nontender, nondistended, normal bowel sounds Extremities right knee with minimal erythema, small scab covering the knee. No active drainage. Neuro cranial nerves II through XII intact Results - Labs CBC & Chem 7: 07/12/18 06:26 07/12/18 06:26 Laboratory Results - last 24 hr 07/10/18 07/12/18 07/12/18 18:45 06:26 06:26 WBC 12.5 H RBC 4.31 L Hgb 12.3 L Hct 35.8 L MCV 83.1 MCH 28.6 MCHC 34.4 RDW 13.0 Plt Count 350 MPV 8.2 APTT Sodium 140 Potassium 3.3 L Chloride 107 Carbon Dioxide 25.5 Anion Gap 8 BUN 13 Creatinine 2.96 H Estimated GFR 25 L Random Glucose 92 Calcium 8.2 L Phosphorus 3.4 Magnesium 2.0 Albumin 2.0 L Albumin (PEP) 2.34 L Albumin/Globulin Ratio 0.68 L Xwuze-5-Vbatgasya 0.42 H Yqehy-2-Wnusadamv 1.03 H Beta Globulins 0.87 Gamma Globulins 1.14 PEP Pathologist Comment 07/12/18 06:26 WBC RBC Hgb Hct MCV MCH MCHC RDW Plt Count MPV APTT 54.0 H Sodium Potassium Chloride Carbon Dioxide Anion Gap BUN Creatinine Estimated GFR Random Glucose Calcium Phosphorus Magnesium Albumin Albumin (PEP) Albumin/Globulin Ratio Udpwa-2-Tdcoagivr Xwlrd-3-Aqlxjnaal Beta Globulins Gamma Globulins PEP Pathologist Comment - Procedures Dr. Soriano assessed patient. He delaminated the necrotic skin with his fingers and expressed purulent drainage. Cultures were obtained and sent to lab. Dry dressing applied. Assessment and Plan - Plan This patient is a 27-year-old male with a history of IV drug use who presented with complaints of right knee swelling after a suspected spider bite. Patient was found to have prepatellar bursitis and sepsis. Ultrasound imaging showed a DVT to the right lower extremity. During the hospitalization the patient received IV contrast for evaluation of possible abscess formation in the right lower extremity and was on vancomycin.. He began to have a significant elevation of his serum creatinine. 1. Sepsis secondary to right lower extremity cellulitis and prepatellar bursitis. 2. Right lower extremity DVT. Patient was febrile on admission. He also had an elevated WBC count. Swelling of the right knee has improved significantly. Right lower extremity shows erythema swelling. Patient currently on antibiotics. Orthopedics evaluated the patient and does not recommend any surgical intervention at this point as the wound is draining. Currently on heparin drip for the right lower extremity DVT given the patient's current acute kidney injury. The patient has acute kidney injury with a GFR around 20. The patient has no insurance and we are attempting to schedule appointment for the patient within the next 1 week. Once the patient's serum creatinine does improve we can potentially switch him over to Lovenox or an oral anticoagulant given his current DVT. We will follow-up a.m. renal panel. Continue pain medication as needed. 3. Acute kidney injury On admission serum creatinine 0.9, currently 2.9 as of today and is improving. Because possibly secondary to IV contrast or possibly IV vancomycin. Nephrology following the patient. Antibiotics IV discontinued. Follow-up Renal panel from today and tomorrow am. Avoid nephrotoxic agents. 4. Tobacco use Patient counseled on smoking cessation. Nicotine patch. 5. Transaminitis Likely due to hepatitis C. LFTs have down trended slightly. DVT prophylaxis, patient currently on heparin drip.
--- NOTE | 2018-07-12 16:33 | P.PNNP ---
Subjective Interval history: Patient was seen, no distress. Renal function has improved. Patient was requesting to be discharged, stated mother is in the ED. Patient can be discharged from a nephrology standpoint. <Keesha Tim - Last Filed: 07/12/18 16:29> Physical Exam Vital signs: Vital Signs 07/11/18 20:00 07/12/18 00:00 07/12/18 04:00 Temperature 97.7 F 98.1 F 97.2 F L Pulse Rate 61 61 68 Respiratory Rate 18 18 18 Blood Pressure 188/96 H 132/84 152/80 H Pulse Oximetry 98 98 96 07/12/18 08:00 07/12/18 12:00 Temperature 98.0 F 97.5 F L Pulse Rate 77 75 Respiratory Rate 13 12 Blood Pressure 150/80 H 145/85 H Pulse Oximetry 99 99 Intake & Output 07/11/18 07/12/18 07/12/18 18:59 06:59 18:59 Intake Total 1730 / 1730 780 / 780 250 / 250 Balance 1730 / 1730 780 / 780 250 / 250 Weight 104 kg Intake: IV 1250 / 1250 250 / 250 Heparin/D5W 25,000 U/250 mL 25, 250 / 250 250 / 250 000 unit In 250 ml @ Per Protocol IV.CONT TITRATE PRN Rx #:[id number] NS Inj 1,000 ML @ 75 mls/hr IV. 1000 / 1000 CONT .[id number] [facility] Rx#:[id number] Oral 480 / 480 780 / 780 Other: # Voids 3 3 Date of Last Bowel Movement 07/10/18 07/12/18 # Bowel Movements 0 4 - Constitutional no acute distress - Routine HEENT Exam Head: Present: normocephalic Eye: Present: EOMI, PERRL ENT: Present: mucous membranes moist - Routine Neck Exam Absent: JVD, tracheal deviation - Routine Respiratory Exam Absent: accessory muscle use, respiratory distress - Routine Cardiovascular Exam Present: RRR - Routine Abdominal Exam Present: soft. Absent: tenderness - Routine Extremities Exam Absent: edema - Routine Neurological Exam Present: alert, oriented X3 - Routine Psychiatric Exam Present: normal affect <Keesha Tim - Last Filed: 07/12/18 16:29> Vital signs: Vital Signs 07/12/18 00:00 07/12/18 04:00 07/12/18 08:00 Temperature 98.1 F 97.2 F L 98.0 F Pulse Rate 61 68 77 Respiratory Rate 18 18 13 Blood Pressure 132/84 152/80 H 150/80 H Pulse Oximetry 98 96 99 07/12/18 12:00 07/12/18 16:00 07/12/18 20:00 Temperature 97.5 F L 97.2 F L 97.9 F Pulse Rate 75 65 81 Respiratory Rate 12 13 17 Blood Pressure 145/85 H 150/68 H 148/92 H Pulse Oximetry 99 99 97 Intake & Output 07/12/18 07/12/18 07/13/18 06:59 18:59 06:59 Intake Total 780 / 780 730 / 730 Output Total 700 / 700 Balance 780 / 780 30 / 30 Weight 104 kg Intake: IV 250 / 250 Heparin/D5W 25,000 U/250 mL 25, 250 / 250 000 unit In 250 ml @ Per Protocol IV.CONT TITRATE PRN Rx #:[id number] Oral 780 / 780 480 / 480 Output: Urine 700 / 700 Other: # Voids 3 Date of Last Bowel Movement 07/12/18 # Bowel Movements 4 <Philip Paulino - Last Filed: 07/12/18 22:08> Assessment and Plan - Assessment (1) Acute kidney injury Code(s): N17.9 - Acute kidney failure, unspecified Status: Acute Plan: Could be secondary to Vancomycin induced nephrotoxicity. It has been stopped at this time. Patient also received IV contrast. Renal function has improved. Patient can be discharged from a nephrology standpoint. (2) Cellulitis Code(s): L03.90 - Cellulitis, unspecified Status: Acute - Plan Being followed by orthopedics. Was on Vancomycin, now stopped. Management per hospitalist. <Keesha Tim - Last Filed: 07/12/18 16:29> - Assessment (1) Acute kidney injury Code(s): N17.9 - Acute kidney failure, unspecified Status: Acute (2) Cellulitis Code(s): L03.90 - Cellulitis, unspecified Status: Acute - Attending Attestation patient was seen and examined. Renal function has improved. We will sign off. <Philip Paulino - Last Filed: 07/12/18 22:08>
[2018-07-13] MEDS: Lactobacillus Acidophilus/L. Spores Tablet PO SCH (08:39)
[2018-07-13] MEDS: Senna/Docusate Sodium 8.6/50 MG Tablet PO SCH (08:40)
[2018-07-13] MEDS: Heparin Drip 25,000 UNIT/250 ML BAG IV.CONT PRN (13:11)
[2018-07-13 13:14] LABS: Calcium 8.5 mg/dL (8.5-10.1); Carbon Dioxide 27.5 meq/L (21.0-32.0); Potassium 4.1 meq/L (3.5-5.1)
[2018-07-13] MEDS ORDERED: amLODIPine 5 MG Tablet PO SCH (13:45)
--- NOTE | 2018-07-13 14:54 | P.DS ---
Date of admission: 07/05/18 09:37 Primary care physician: No Primary Care Physician Brief History from admission: This patient is a 27-year-old male with a history of IV drug use who presented with complaints of right knee swelling after a suspected spider bite. Patient was found to have prepatellar bursitis and sepsis. Ultrasound imaging showed a DVT to the right lower extremity. During the hospitalization the patient received IV contrast for evaluation of possible abscess formation in the right lower extremity and was on vancomycin.. He began to have a significant elevation of his serum creatinine. DS: Medications - Discharge Medications Prescriptions: amlodipine [Norvasc] 5 mg PO DAILY #60 tab apixaban [Eliquis] 5 mg PO BID #60 tab DS: Summary Hospital Course: This patient is a 27-year-old male with a history of IV drug use who presented with complaints of right knee swelling after a suspected spider bite. Patient was found to have prepatellar bursitis and sepsis. Ultrasound imaging showed a DVT to the right lower extremity. During the hospitalization the patient received IV contrast for evaluation of possible abscess formation in the right lower extremity and was on vancomycin.. He began to have a significant elevation of his serum creatinine. 1. Sepsis secondary to right lower extremity cellulitis and prepatellar bursitis. 2. Right lower extremity DVT. 3. Acute kidney injury Patient was febrile on admission. He also had an elevated WBC count. Swelling of the right knee has improved significantly. Right lower extremity showed erythema and swelling with has now improved. Patient finished his course of antibiotics. Orthopedics evaluated the patient and does not recommend any surgical intervention at this point as the wound is draining. The patient also had contrast-induced or possibly vancomycin induced acute kidney injury during auscultation. Current serum creatinine is around 3 which was downtrending over the past couple days. Nephrology evaluated the patient and cleared him for discharge. I recommended the patient follow-up with a primary care doctor in the next few weeks. Patient says he will follow-up in the [facility] this week in the walk-in clinic and wait to be seen. Patient have a renal panel checked during that visit. The patient is being discharged on Eliquis, I discussed the case with pharmacy regarding the patient's acute kidney injury and discharging him on Eliquis. Given the patient's current GFR he is okay to be discharged on Eliquis. The risks and benefits of being on anti-correlation were discussed with the patient and he agrees to continue Eliquis. He should be on anticoagulation for at least 3 months. 4. Tobacco use 5. Heroin abuse Patient counseled on smoking cessation. Nicotine patch. Patient admitted to snorting heroin. He denies any history of IV drug use. Patient advised to avoid substance abuse. 5. Transaminitis Likely due to hepatitis C. LFTs have down trended slightly. Continue to follow-up with primary care doctor. - Time Spent with Patient Total time spent providing and/or coordinating discharge services: Greater than 30 minutes - Quality: VTE Deep Vein Thrombosis/Pulmonary Embolism Present on Admission: No Exam Vital signs: Vital Signs 07/12/18 16:00 07/12/18 20:00 07/13/18 00:00 Temperature 97.2 F L 97.9 F 97.8 F Pulse Rate 65 81 83 Respiratory Rate 13 17 17 Blood Pressure 150/68 H 148/92 H 145/87 H Pulse Oximetry 99 97 95 07/13/18 04:00 07/13/18 08:00 Temperature 97.2 F L 97.2 F L Pulse Rate 91 H 76 Respiratory Rate 17 18 Blood Pressure 159/95 H 170/89 H Pulse Oximetry 97 99 Intake & Output 07/12/18 07/13/18 07/13/18 18:59 06:59 18:59 Intake Total 730 / 730 490 / 490 250 / 250 Output Total 700 / 700 400 / 400 Balance 30 / 30 90 / 90 250 / 250 Weight 106.6 kg Intake: IV 250 / 250 250 / 250 250 / 250 Heparin/D5W 25,000 U/250 mL 25, 250 / 250 250 / 250 250 / 250 000 unit In 250 ml @ Per Protocol IV.CONT TITRATE PRN Rx #:[id number] Oral 480 / 480 240 / 240 Output: Urine 700 / 700 400 / 400 Other: Date of Last Bowel Movement 07/12/18 07/12/18 # Bowel Movements 0 Narrative: General patient in no acute distress HEENT extraocular movements are intact, clear oropharyngeal mucosa, no JVD Cardiovascular S1-S2 audible, RRR, no murmurs rubs or gallops Respiratory clear to auscultation bilaterally Abdomen soft, nontender, nondistended, normal bowel sounds Extremities no edema. Right knee erythema has improved significantly. Neuro cranial nerves II through XII intact Results Procedures completed during hospitalization: Dr. Soriano assessed patient. He delaminated the necrotic skin with his fingers and expressed purulent drainage. Cultures were obtained and sent to lab. Dry dressing applied. Labs on day of discharge: Labs from last 24 hours 07/13/18 07/13/18 07/10/18 11:56 11:56 18:45 APTT 40.8 H D Sodium 141 Potassium 4.1 D Chloride 106 Carbon Dioxide 27.5 Anion Gap 8 BUN 14 Creatinine 3.01 H Estimated GFR 25 L Random Glucose 89 Calcium 8.5 PEP Pathologist Comment - Impressions ITS Impressions Venous Doppler Study 07/04/18 01:30 CONCLUSION: 1. Small volume DVT. Lower Extremity Ultrasound 07/05/18 00:00 CONCLUSION: Suspected inflammatory change and possible early abscess formation in the subcutaneous tissues over the anterior knee region measuring up to 6.6 cm in greatest dimension. Knee CT 07/05/18 14:20 CONCLUSION: Prominent inflammatory changes especially anteriorly. There appears to be fluid in the subcutaneous fat which is potentially organizing into an abscess. A well delineated abscess is not seen at this point. Discharge Plan - Discharge Disposition Patient Disposition: Discharge Home - Discharge Condition Condition: Stable - Discharge Order Discharge Orders: Discharge Order (Routine); Ordered 07/13/18 Ordered By: Manjit Nguyen - Physicians Team Primary Care Provider: Primary Care Physici,No Attending Provider: Manjit Nguyen Other Providers: Kat Mcginnis MD ; Philip Paulino MD
== END 2018-07-13 16:39 | disposition home or self-care (01) ==
LOC: NEDA 23:40 → NEPE 23:40 → NEPFCDU 07-04 11:32 → N04 07-05 12:58
PROVIDERS: ADMIT Hospitalist; ATTEND Hospitalist